=== PATIENT | male | born 1960 | race Caucasian/White ===

== ENCOUNTER → 2022-10-28 16:36 | Outpatient (BNVA) | payer MEDICARE, MEDICAID, SELFPAY | PROVIDERS: PCP Family Medicine; Visit Provider Thoracic Surgery (Cardiothoracic Vascular Surgery) | DX: I96 Gangrene, not elsewhere classified (principal); E11.621 Type 2 diabetes mellitus with foot ulcer; L97.522 Non-pressure chronic ulcer of other part of left foot with fat layer exposed | CPT/HCPCS: 11042; 97597 ==

== ENCOUNTER 2022-11-23 14:50 | Emergency (ER) | payer MEDICARE, MEDICAID, SELFPAY ==
[2022-11-23 14:57] VITALS: BP 134/68; PULSE 108; RESP 16; TEMP 37.3; O2SAT 92
--- NOTE | 2022-11-23 15:21 | ED_ITS ---
HPI - Extremity Problem General: Chief complaint: Extremity Injury, Lower Stated complaint: blisters on both feet. Time Seen by Provider: 11/23/22 15:01 History of Present Illness: Patient comes in with blisters on both feet. States that he is diabetic and does not have feeling in his feet. States that the last couple of days he noticed blisters on his feet bilaterally. States he had a blister on his left big toe which he took the skin off of. States he is concerned that that 1 might be infected. Associated symptoms: Deny chest pain, fever(s) or rash Review of Systems Const: Denies: fever(s) or body aches Eyes: Denies: change in vision or blurry vision ENMT: Denies: throat pain or odynophagia Card: Denies: chest pain or palpitations Resp: Denies: dyspnea or productive cough GI: Denies: abdominal pain, nausea or vomiting : Denies: flank pain or dysuria Musc: Denies: neck pain or back pain Skin/Breast: Reports: erythema and sores; Denies: rash or pruritus Neuro: Denies: headache(s) or numbness in extremities Psych: Denies: anxiety or change in appetite Endo: Denies: polyuria or excessive sweating PFSH ED PFSH: Medical History (Updated 11/23/22 @ 15:21 by Gaudencio Khan MD) Diabetes Postoperative complication of skin involving drainage from surgical wound Pressure ulcer acquired in [facility] PVD (peripheral vascular disease) Social History Smoking and tobacco status: former smoker Physical Exam Const: COMMON NORMALS: no acute distress, patient oriented x3, healthy appearing and alert HENMT: COMMON NORMALS: normocephalic and atraumatic HEAD & SCALP: normocephalic and atraumatic Eye: COMMON NORMALS: Equal, round and reactive pupils present and EOMs intact bilaterally PUPIL: Yes Equal, round and reactive pupils present Neck/C-Spine: COMMON NORMALS: full ROM and supple Resp: COMMON NORMALS: normal respiratory effort, No retractions and No use of accessory muscles Cardio: COMMON NORMALS: regular rate and regular rhythm RATE: regular rate RHYTHM: regular rhythm GI: COMMON NORMALS: Normal to inspection, nondistended, normoactive bowel sounds present, Soft to palpation and non-tender PALPATION: Yes Soft to palpation Back/Pelvis: COMMON NORMALS: thoracic and lumbar spine normal to inspection and no thoracic nor lumbar tenderness Extremity: OTHER: blisters on the medial aspect of bilateral big toes. His left foot is warm to touch with very mild erythema. 2+ pitting edema of his left lower extremity Neuro: COMMON NORMALS: patient oriented x3 SENSORIUM/ORIENTATION: Yes alert Psych: COMMON NORMALS: mental status grossly normal and cooperative Skin: COMMON NORMALS: no rashes or lesions noted and no wounds GENERAL SKIN EXAM: no rashes or lesions noted Course Vital Signs: Vital signs: Vital Signs Temperature 99.2 F 11/23/22 14:57 Pulse Rate 108 H 11/23/22 14:57 Respiratory Rate 16 11/23/22 14:57 Blood Pressure 134/68 11/23/22 14:57 Pulse Oximetry 92 11/23/22 14:57 MDM - Extremity (Nontraumatic) Medical Decision Making Patient comes in with blisters on both feet. States that he is diabetic and does not have feeling in his feet. States that the last couple of days he noticed blisters on his feet bilaterally. States he had a blister on his left big toe which he took the skin off of. States he is concerned that that 1 might be infected. On physical exam he has blisters on the medial aspect of bilateral big toes. His left foot is warm to touch with very mild erythema. I am concerned that it may be infected. Given his history of diabetes will start him on antibiotics and discharge precautions return for worsening or changing symptoms. He states that he has an appointment in the wound care clinic in 2 days. Discharge Plan Discharge Patient Disposition: Home Clinical Impression: Cellulitis of foot, Blister Condition: Stable Prescriptions: New Bactrim DS 800-160 mg tablet 1 tab PO BID 10 Days Qty: 20 0RF cephalexin 500 mg capsule 500 mg PO Q6H 10 Days Qty: 40 0RF No Action aspirin 81 mg tablet,delayed release (DR/EC) 81 mg PO DAILY oxycodone 5 mg capsule 5 mg PO Q4H PRN albuterol sulfate [ProAir HFA] 90 mcg/actuation HFA aerosol inhaler 1 puff inhalation QID Eliquis 5 mg tablet 5 mg PO BID atorvastatin 10 mg tablet 10 mg PO DAILY Farxiga 10 mg tablet 10 mg PO DAILY Bydureon BCise 2 mg/0.85 mL auto-injector 2 mg SUBCUT Q7D insulin aspart U-100 [Novolog U-100 Insulin aspart] 100 unit/mL solution 14 unit SUBCUT TID Lantus Solostar U-100 Insulin 100 unit/mL (3 mL) insulin pen 28 unit SUBCUT .hs ketoconazole 2 % cream 1 applic topical DAILY lisinopril 20 mg tablet 20 mg PO DAILY metformin 500 mg tablet 500 mg PO BID metoprolol succinate 100 mg tablet extended release 24 hr 100 mg PO BID mupirocin 2 % ointment 1 applic topical BID pioglitazone 30 mg tablet 30 mg PO DAILY pregabalin [Lyrica] 100 mg capsule 100 mg PO BID Trintellix 10 mg tablet 10 mg PO DAILY Discharge Orders: Discharge ED (Routine); Ordered 11/23/22 Ordered By: Gaudencio Khan Referrals: Wero Galvez DO [Primary Care Provider] - Patient Instructions: Cellulitis, Blister (ED) Coding Level of Care Code ED [employer] for [employer]
[2022-11-23 15:44] VITALS: PULSE 91; RESP 18; O2SAT 96
== END 2022-11-23 15:46 | disposition home or self-care (01) ==
PROVIDERS: Emergency Provider Emergency Medicine; PCP Family Medicine
DX: L03.116 Cellulitis of left lower limb (principal); R23.8 Other skin changes; Z79.82 Long term (current) use of aspirin; Z79.01 Long term (current) use of anticoagulants; Z79.4 Long term (current) use of insulin; Z79.84 Long term (current) use of oral hypoglycemic drugs; E11.9 Type 2 diabetes mellitus without complications; Z87.891 Personal history of nicotine dependence
CPT/HCPCS: 99283

== ENCOUNTER → 2022-11-25 16:01 | Outpatient (BNVA) | payer MEDICARE, MEDICAID, SELFPAY | PROVIDERS: PCP Family Medicine; Visit Provider Thoracic Surgery (Cardiothoracic Vascular Surgery) | DX: I96 Gangrene, not elsewhere classified (principal); E11.621 Type 2 diabetes mellitus with foot ulcer; L89.892 Pressure ulcer of other site, stage 2; L97.312 Non-pressure chronic ulcer of right ankle with fat layer exposed; Z09 Encounter for follow-up examination after completed treatment for conditions other than malignant neoplasm | CPT/HCPCS: 11042; 11045; 97597 ==

== ENCOUNTER → 2022-12-02 13:56 | Outpatient (BNVA) | payer MEDICARE, MEDICAID, SELFPAY | PROVIDERS: PCP Family Medicine; Visit Provider Thoracic Surgery (Cardiothoracic Vascular Surgery) | DX: T25.222D Burn of second degree of left foot, subsequent encounter (principal); X15.8XXD Contact with other hot household appliances, subsequent encounter; E11.621 Type 2 diabetes mellitus with foot ulcer; L97.522 Non-pressure chronic ulcer of other part of left foot with fat layer exposed | CPT/HCPCS: 11042; 11045; 97597 ==

== ENCOUNTER → 2022-12-14 14:15 | Outpatient (BNVA) | payer MEDICARE, MEDICAID, SELFPAY | PROVIDERS: PCP Family Medicine; Visit Provider Thoracic Surgery (Cardiothoracic Vascular Surgery) | DX: E11.621 Type 2 diabetes mellitus with foot ulcer (principal); L97.522 Non-pressure chronic ulcer of other part of left foot with fat layer exposed; T25.222D Burn of second degree of left foot, subsequent encounter; X15.8XXD Contact with other hot household appliances, subsequent encounter | CPT/HCPCS: 11042; 11045; 11730; 97597; A6222 ==

== ENCOUNTER → 2022-12-21 13:00 | Outpatient (BNVA) | payer MEDICARE, MEDICAID, SELFPAY | PROVIDERS: PCP Family Medicine; Visit Provider Nurse Practitioner Family | DX: I96 Gangrene, not elsewhere classified (principal); E11.621 Type 2 diabetes mellitus with foot ulcer; L97.522 Non-pressure chronic ulcer of other part of left foot with fat layer exposed; L97.512 Non-pressure chronic ulcer of other part of right foot with fat layer exposed | CPT/HCPCS: 97597; 97598 ==

== ENCOUNTER → 2022-12-28 14:19 | Outpatient (BNVA) | payer MEDICARE, MEDICAID, SELFPAY | PROVIDERS: PCP Family Medicine; Visit Provider Nurse Practitioner Family | DX: I96 Gangrene, not elsewhere classified (principal); E11.621 Type 2 diabetes mellitus with foot ulcer; L97.512 Non-pressure chronic ulcer of other part of right foot with fat layer exposed; L97.522 Non-pressure chronic ulcer of other part of left foot with fat layer exposed | CPT/HCPCS: 97597; 97598 ==

== ENCOUNTER → 2023-01-07 09:58 | Outpatient (BNVA) | payer MEDICARE, MEDICAID, SELFPAY | PROVIDERS: PCP Family Medicine; Visit Provider Nurse Practitioner Family | DX: I96 Gangrene, not elsewhere classified (principal); E11.621 Type 2 diabetes mellitus with foot ulcer; L97.522 Non-pressure chronic ulcer of other part of left foot with fat layer exposed; L97.512 Non-pressure chronic ulcer of other part of right foot with fat layer exposed | CPT/HCPCS: 11042 ==

== ENCOUNTER → 2023-01-14 09:40 | Outpatient (BNVA) | payer MEDICARE, MEDICAID, SELFPAY | PROVIDERS: PCP Family Medicine; Visit Provider Nurse Practitioner Family | DX: E11.621 Type 2 diabetes mellitus with foot ulcer (principal); L97.522 Non-pressure chronic ulcer of other part of left foot with fat layer exposed | CPT/HCPCS: 11042 ==

== ENCOUNTER → 2023-01-18 13:35 | Outpatient (BNVA) | payer MEDICARE, MEDICAID, SELFPAY | PROVIDERS: PCP Family Medicine; Visit Provider Thoracic Surgery (Cardiothoracic Vascular Surgery) | DX: E11.621 Type 2 diabetes mellitus with foot ulcer (principal); L97.522 Non-pressure chronic ulcer of other part of left foot with fat layer exposed | CPT/HCPCS: 11042 ==

== ENCOUNTER → 2023-01-25 15:08 | Outpatient (BNVA) | payer MEDICARE, MEDICAID, SELFPAY | PROVIDERS: PCP Family Medicine; Visit Provider Thoracic Surgery (Cardiothoracic Vascular Surgery) | DX: I96 Gangrene, not elsewhere classified (principal); E11.621 Type 2 diabetes mellitus with foot ulcer; L97.522 Non-pressure chronic ulcer of other part of left foot with fat layer exposed | CPT/HCPCS: 11042; 97597; A6212 ==

== ENCOUNTER → 2023-02-01 14:43 | Outpatient (BNVA) | payer MEDICARE, MEDICAID, SELFPAY | PROVIDERS: PCP Family Medicine; Visit Provider Thoracic Surgery (Cardiothoracic Vascular Surgery) | DX: I96 Gangrene, not elsewhere classified (principal); E11.621 Type 2 diabetes mellitus with foot ulcer; L97.522 Non-pressure chronic ulcer of other part of left foot with fat layer exposed; Z09 Encounter for follow-up examination after completed treatment for conditions other than malignant neoplasm | CPT/HCPCS: 11042 ==

== ENCOUNTER → 2023-02-08 08:41 | Outpatient (BNVA) | payer MEDICARE, MEDICAID, SELFPAY | PROVIDERS: PCP Family Medicine; Visit Provider Thoracic Surgery (Cardiothoracic Vascular Surgery) | DX: I96 Gangrene, not elsewhere classified (principal); E11.621 Type 2 diabetes mellitus with foot ulcer; L97.422 Non-pressure chronic ulcer of left heel and midfoot with fat layer exposed | CPT/HCPCS: 11042 ==

== ENCOUNTER → 2023-02-15 08:56 | Outpatient (BNVA) | payer MEDICARE, MEDICAID, SELFPAY | PROVIDERS: PCP Family Medicine; Visit Provider Nurse Practitioner Family | DX: E11.621 Type 2 diabetes mellitus with foot ulcer (principal); L97.422 Non-pressure chronic ulcer of left heel and midfoot with fat layer exposed | CPT/HCPCS: 97597 ==

== ENCOUNTER → 2023-02-22 09:05 | Outpatient (BNVA) | payer MEDICARE, MEDICAID, SELFPAY | PROVIDERS: PCP Family Medicine; Visit Provider Thoracic Surgery (Cardiothoracic Vascular Surgery) | DX: E11.621 Type 2 diabetes mellitus with foot ulcer (principal); I96 Gangrene, not elsewhere classified; L97.422 Non-pressure chronic ulcer of left heel and midfoot with fat layer exposed | CPT/HCPCS: 97597 ==

== ENCOUNTER → 2023-03-15 10:49 | Outpatient (BNVA) | payer MEDICARE, MEDICAID, SELFPAY | PROVIDERS: PCP Family Medicine; Visit Provider Thoracic Surgery (Cardiothoracic Vascular Surgery) | DX: T25.222D Burn of second degree of left foot, subsequent encounter (principal); X16.XXXD Contact with hot heating appliances, radiators and pipes, subsequent encounter; E11.621 Type 2 diabetes mellitus with foot ulcer; L97.522 Non-pressure chronic ulcer of other part of left foot with fat layer exposed | CPT/HCPCS: 97597 ==

== ENCOUNTER → 2023-03-29 13:58 | Outpatient (BNVA) | payer MEDICARE, MEDICAID, SELFPAY | PROVIDERS: PCP Family Medicine; Visit Provider Thoracic Surgery (Cardiothoracic Vascular Surgery) | DX: E11.52 Type 2 diabetes mellitus with diabetic peripheral angiopathy with gangrene (principal); L97.522 Non-pressure chronic ulcer of other part of left foot with fat layer exposed | CPT/HCPCS: 97597; A6021 ==

== ENCOUNTER → 2023-04-05 14:04 | Outpatient (BNVA) | payer MEDICARE, MEDICAID, SELFPAY | PROVIDERS: PCP Family Medicine; Visit Provider Thoracic Surgery (Cardiothoracic Vascular Surgery) | DX: Z09 Encounter for follow-up examination after completed treatment for conditions other than malignant neoplasm (principal) | CPT/HCPCS: 99212; A6212 ==

== ENCOUNTER 2024-10-24 14:33 | Emergency (ER) | payer MEDICARE, MEDICAID, SELFPAY ==
[2024-10-24] VITALS (31 sets, daily range): BP systolic 119–157; BP diastolic 84–134; PULSE 88–109; RESP 11–29; TEMP 36.2; O2SAT 91–100; BMI 21.7
--- NOTE | 2024-10-24 14:38 | XRR_ITS ---
PROCEDURE INFORMATION: Exam: XR Chest Exam date and time: 10/24/2024 2:47 PM Age: 64 years old Clinical indication: Cough and dyspnea and shortness of breath; Additional info: Dyspnea/cough TECHNIQUE: Imaging protocol: Radiologic exam of the chest. Views: 1 view. COMPARISON: No relevant prior studies available. FINDINGS: Lungs: Left lower lobe atelectasis. The lungs are expanded and clear. No consolidation. Pleural spaces: Elevated left hemidiaphragm. No pleural effusion. No pneumothorax. Heart/Mediastinum: Unremarkable. No cardiomegaly. Bones/joints: Unremarkable. XR/XR chest 1V portable [id number] IMPRESSION: 1. No acute findings. 2. Elevated left hemidiaphragm
--- NOTE | 2024-10-24 14:48 | W.ED.GENADLT ---
Documented by User: Thuan Davis, 10/25/24 05:40 HPI - General Adult General: Chief complaint: General Medical Stated complaint: SOB Time Seen by Provider: 10/24/24 14:38 History of Present Illness: 64-year-old male presents emergency room from home. He evidently left the retirement AMA 13 days ago has been without his medications. He is diabetic he has an open wound on the dorsum of his left foot. Blood sugar at the scene was 384. Reportedly patient is normally on 2 L/min by nasal cannula but he is satting consistently around 91 to 92% at room air. He denies any chest or abdominal pain. History reviewed. Associated symptoms: Reports dyspnea; Deny chest pain or rash Related Data Home Medications Medication Instructions Recorded Confirmed atorvastatin 10 mg tablet 10 mg PO QPM 03/09/22 10/24/24 exenatide microspheres 2 mg/0.85 2 mg SUBCUT Q7D 03/09/22 10/24/24 mL subcutaneous auto-injector ([employer]) lisinopril 20 mg tablet 20 mg PO DAILY 03/09/22 10/24/24 vortioxetine 10 mg tablet 10 mg PO DAILY 03/09/22 10/24/24 (Trintellix) acetaminophen 500 mg capsule 500 mg PO Q6H PRN Pain 10/24/24 10/24/24 albuterol sulfate 90 mcg/actuation 1 inh inhalation Q4H PRN Shortness 10/24/24 10/24/24 aerosol inhaler Of Breath Or Wheezing budesonide-formoterol HFA 160 2 puff inhalation BID 10/24/24 10/24/24 mcg-4.5 mcg/actuation aerosol inhaler (Symbicort) insulin aspart U-100 100 unit/mL See Rx Instructions .Route .COMPLEX 10/24/24 10/24/24 (3 mL) subcutaneous pen (Novolog FlexPen U-100 Insulin aspart) insulin degludec 200 unit/mL (3 38 unit SUBCUT DAILY 10/24/24 10/24/24 mL) subcutaneous pen (Tresiba FlexTouch U-200 insulin) ipratropium 0.5 mg-albuterol 3 mg 3 ml inhalation Q6H PRN Shortness 10/24/24 10/24/24 (2.5 mg base)/3 mL nebulization Of Breath Or Wheezing soln magnesium hydroxide 400 mg/5 mL 30 ml PO BID PRN Constipation 10/24/24 10/24/24 oral suspension (Milk of Magnesia) melatonin 3 mg tablet 3 mg PO QPM 10/24/24 10/24/24 metformin 1,000 mg tablet 1,000 mg PO BID 10/24/24 10/24/24 metoprolol succinate 25 mg 25 mg PO DAILY 10/24/24 10/24/24 tablet,extended release 24 hr nystatin 100,000 unit/gram topical 1 applic topical DAILY PRN rash 10/24/24 10/24/24 cream ondansetron 4 mg disintegrating 4 mg PO Q6H 10/24/24 10/24/24 tablet polyethylene glycol 3350 17 gram 17 g PO DAILY 10/24/24 10/24/24 oral powder packet (Miralax) tamsulosin 0.4 mg capsule 0.4 mg PO QPM 10/24/24 10/24/24 Previous Rx's Medication Instructions Recorded furosemide 40 mg tablet (Lasix) 40 mg PO DAILY #5 tabs 10/24/24 Allergies Allergy/AdvReac Type Severity Reaction Status Date / Time No Known Allergies Allergy Unverified 03/09/22 10:38 Review of Systems Const: Denies: fever(s) or chills Card: Denies: chest pain Resp: Reports: dyspnea; Denies: productive cough, wheezing or chest congestion GI: Denies: abdominal pain : Denies: dysuria, urinary frequency or urinary urgency Musc: Denies: neck pain or back pain Skin/Breast: Denies: rash PFSH ED PFSH: Medical History Pressure ulcer acquired in [facility] [place] Diabetes PVD (peripheral vascular disease) Postoperative complication of skin involving drainage from surgical wound Social History Smoking and tobacco/nicotine status: former use of tobacco/nicotine Physical Exam Const: COMMON NORMALS: no acute distress GENERAL APPEARANCE: cooperative and comfortable ORIENTATION/CONSCIOUSNESS: Yes awake and Yes oriented to person HENMT: COMMON NORMALS: normocephalic, atraumatic and hearing grossly normal bilaterally HEAD & SCALP: normocephalic and atraumatic Resp: COMMON NORMALS: normal respiratory effort, No retractions, No use of accessory muscles and clear to auscultation bilaterally AUSCULTATION: clear to auscultation bilaterally Cardio: COMMON NORMALS: regular rate, regular rhythm and No murmurs present (Cardio) RATE: regular rate RHYTHM: regular rhythm GI: COMMON NORMALS: Soft to palpation and No hepatosplenomegaly present AUSCULTATION: Yes normoactive bowel sounds PALPATION: Yes Soft to palpation, No Tenderness to palpation present (GI), No Guarding due to palpation present (GI) and Yes No hepatosplenomegaly present Extremity: COMMON NORMALS: normal to inspection, capillary refill normal, no clubbing, cyanosis or edema, no calf tenderness and no pedal edema Neuro: SENSORIUM/ORIENTATION: Yes oriented to person Skin: COMMON NORMALS: no rashes or lesions noted GENERAL SKIN EXAM: no rashes or lesions noted Course Vital Signs: Vital signs: Vital Signs Temperature 97.2 F L 10/24/24 14:35 Pulse Rate 102 H 10/24/24 18:30 Respiratory Rate 29 H 10/24/24 18:30 Blood Pressure 157/134 10/24/24 18:30 Pulse Oximetry 91 10/24/24 18:30 Oxygen Delivery Me thod Nasal Cannula 10/24/24 18:07 Oxygen Flow Rate 2 10/24/24 18:07 [facility] - General Adult Medical Decision Making Care signed out to Dr. Maurer at change of shift. See final notes for diagnosis and disposition. Care transferred over to myself at shift change, lab work was reviewed, no pulmonary edema chest bilateral lower extremity edema and chronic left foot ache wound, patient will be referred to wound care. We dressed it in a Betadine gauze type dressing, patient will be placed on Lasix 40 mg a day for the next 5 days and instructed to follow-up with his PCP. Lab Data 10/24/24 15:20 10/24/24 15:20 Radiology Impressions Chest X-Ray 10/24/24 14:38 IMPRESSION: 1. No acute findings. 2. Elevated left hemidiaphragm Laboratory Results WBC 6.96 10^3/uL (3.29-11.43) 10/24/24 15:20 RBC 4.84 10^6/uL (3.85-5.65) 10/24/24 15:20 Hgb 13.00 g/dL (11.27-16.99) 10/24/24 15:20 Hct 44.7 % (37-53) 10/24/24 15:20 MCV 92.4 fl (82-101) 10/24/24 15:20 MCH 26.9 pg (27-33) L 10/24/24 15:20 MCHC 29.1 g/dL (30-55) L 10/24/24 15:20 RDW 14.6 % (12.1-15.1) 10/24/24 15:20 Plt Count 131 10^3/cmm (157-399) L 10/24/24 15:20 MPV 11.4 fL (7.4-10.4) H 10/24/24 15:20 Neut % (Auto) 73.9 % 10/24/24 15:20 Lymph % (Auto) 14.4 % 10/24/24 15:20 [place] % (Auto) 8.8 % 10/24/24 15:20 Eos % (Auto) 2.2 % 10/24/24 15:20 Baso % (Auto) 0.6 % 10/24/24 15:20 Neut # (Auto) 5.15 10^3/uL (1.8-7.7) 10/24/24 15:20 Lymph # (Auto) 1.0 10^3/uL (0.8-4.8) 10/24/24 15:20 [place] # (Auto) 0.6 10^3/uL (0.2-0.9) 10/24/24 15:20 Eos # (Auto) 0.2 10^3/uL (0.0-0.8) 10/24/24 15:20 Baso # (Auto) 0.0 10^3/uL (0.0-0.1) 10/24/24 15:20 Nucleated RBC % (auto) 0 % 10/24/24 15:20 Nucleated RBCs # 0.0 /100WBC 10/24/24 15:20 Sodium 135 mmol/L (136-145) L 10/24/24 15:20 Potassium 4.5 mmol/L (3.5-5.1) 10/24/24 15:20 Chloride 97 mmol/L (98-107) L 10/24/24 15:20 Carbon Dioxide 30 mmol/L (22-29) H 10/24/24 15:20 Anion Gap 12.5 (5-19) 10/24/24 15:20 BUN 16 mg/dL (8-23) 10/24/24 15:20 Creatinine 0.8 mg/dL (0.7-1.2) 10/24/24 15:20 GFR Calculation 96.7 mL/min (90-130) 10/24/24 15:20 Glucose 348 mg/dL (65-115) H 10/24/24 15:20 Calculated Osmolality 295 mOsm/kg (285-295) 10/24/24 15:20 Calcium 8.8 mg/dL (8.5-10.5) 10/24/24 15:20 Total Bilirubin 0.4 mg/dL (0.15-1.2) 10/24/24 15:20 AST 15 U/L (0-40) 10/24/24 15:20 ALT 11 U/L (0-41) 10/24/24 15:20 Alkaline Phosphatase 120 U/L (40-130) 10/24/24 15:20 Troponin T Baseline 33 ng/L (0-15) H 10/24/24 15:20 Troponin T 120 Minute 33.18 ng/L (0-15) H 10/24/24 17:33 Delta Troponin T 0.18 ABS# (0-10) 10/24/24 17:33 C-Reactive Protein 9.7 mg/L (0.0-4.9) H 10/24/24 15:20 NT-Pro-B Natriuret Pep 6071 pg/mL (0-125) H 10/24/24 15:20 Total Protein 6.5 g/dL (6.6-8.7) L 10/24/24 15:20 Albumin 3.2 g/dL (3.5-5.2) L 10/24/24 15:20 Globulin 3.3 g/dL (1.3-4.6) 10/24/24 15:20 Urine Color Dark yellow (Yellow) A 10/24/24 18:37 Urine Appearance Clear (CLEAR) 10/24/24 18:37 Urine pH 5.0 (5-7) 10/24/24 18:37 Ur Specific [place] 1.026 (1.005-1.030) 10/24/24 18:37 Urine Protein 3+ (Negative) A 10/24/24 18:37 Urine Glucose (UA) 3+ (Normal) H 10/24/24 18:37 Urine Ketones Negative (Negative) 10/24/24 18:37 Urine Blood Negative (Negative) 10/24/24 18:37 Urine Nitrate Negative (Negative) 10/24/24 18:37 Urine Bilirubin Negative (Negative) 10/24/24 18:37 Urine Urobilinogen 1.0 mg/dL (Negative) 10/24/24 18:37 Ur Leukocyte Esterase Negative (Negative) 10/24/24 18:37 Urine RBC 0-2 /hpf (0-2) 10/24/24 18:37 Urine WBC 0-5 /hpf (0-5) 10/24/24 18:37 Ur Squamous Epith Cells 0-5 /hpf (0-5) 10/24/24 18:37 Amorphous Sediment Not Reportable 10/24/24 18:37 Urine Bacteria None seen /hpf (NONE) 10/24/24 18:37 Hyaline Casts 21.48 /lpf 10/24/24 18:37 Discharge Plan Discharge Patient Disposition: Home Clinical Impression: Wound of foot Edema Qualifiers: Edema type: unspecified Qualified Code(s): R60.9 - Edema, unspecified Condition: Stable Prescriptions: New furosemide [Lasix] 40 mg tablet 40 mg PO DAILY Qty: 5 0RF No Action atorvastatin 10 mg tablet 10 mg PO QPM Bydureon BCise 2 mg/0.85 mL auto-injector 2 mg SUBCUT Q7D lisinopril 20 mg tablet 20 mg PO DAILY Trintellix 10 mg tablet 10 mg PO DAILY ipratropium-albuterol 0.5 mg-3 mg(2.5 mg base)/3 mL Solution For Nebulization 3 ml INHALATION Q6H PRN (Reason: Shortness Of Breath Or Wheezing) melatonin 3 mg Tablet 3 mg PO QPM magnesium hydroxide [Milk of Magnesia] 400 mg/5 mL Suspension 30 ml PO BID PRN (Reason: Constipation) tamsulosin 0.4 mg Capsule 0.4 mg PO QPM metformin 1,000 mg Tablet 1,000 mg PO BID nystatin 100,000 unit/gram Cream 1 applic TOPICAL DAILY PRN (Reason: rash) metoprolol succinate 25 mg Tablet Extended Release 24 Hr 25 mg PO DAILY albuterol sulfate 90 mcg/actuation Hfa Aerosol Inhaler 1 inh INHALATION Q4H PRN (Reason: Shortness Of Breath Or Wheezing) ondansetron 4 mg Tablet,Disintegrating 4 mg PO Q6H acetaminophen 500 mg Capsule 500 mg PO Q6H PRN (Reason: Pain) insulin aspart U-100 [Novolog FlexPen U-100 Insulin] 100 unit/mL (3 mL) Insulin Pen See Rx Instructions .ROUTE .COMPLEX Rx Instructions: inject as per sliding scale 70-149=0 150-199=2 200-249=4 250-299=6 300-349=8 350+ =10 before meals and at bedtime budesonide-formoterol [Symbicort] 160-4.5 mcg/actuation Hfa Aerosol Inhaler 2 puff INHALATION BID insulin degludec [Tresiba FlexTouch U-200] 200 unit/mL (3 mL) Insulin Pen 38 unit SUBCUT DAILY polyethylene glycol 3350 [Miralax] 17 gram Powder In Packet 17 g PO DAILY Discharge Orders: Discharge ED (Routine); Ordered 10/24/24 Ordered By: Ezequiel Maurer Referrals: Wero Galvez DO [Primary Care Provider] - 1 week Patient Instructions: Chronic Wound Care (ED), Edema (ED) Activity Restrictions/Additional Instructions: You have been referred to case management for referral to wound care. They usually will call you back first thing in the morning to arrange a follow-up appointment. A prescription for Lasix has also been called into [facility]. Please pick it up and take as directed. Please follow up with your family practice physician within the next 7 to 10 days. Coding Level of Care Code ED Hand Alterations Tailor for Chg Fwd Documented by User: Ezequiel Maurer DO 10/24/24 19:35 HPI - General Adult General: Chief complaint: General Medical Stated complaint: SOB Time Seen by Provider: 10/24/24 14:38 Related Data Home Medications Medication Instructions Recorded Confirmed atorvastatin 10 mg tablet 10 mg PO QPM 03/09/22 10/24/24 exenatide microspheres 2 mg/0.85 2 mg SUBCUT Q7D 03/09/22 10/24/24 mL subcutaneous auto-injector (By[employer]well [employer]) lisinopril 20 mg tablet 20 mg PO DAILY 03/09/22 10/24/24 vortioxetine 10 mg tablet 10 mg PO DAILY 03/09/22 10/24/24 (Trintellix) acetaminophen 500 mg capsule 500 mg PO Q6H PRN Pain 10/24/24 10/24/24 albuterol sulfate 90 mcg/actuation 1 inh inhalation Q4H PRN Shortness 10/24/24 10/24/24 aerosol inhaler Of Breath Or Wheezing budesonide-formoterol HFA 160 2 puff inhalation BID 10/24/24 10/24/24 mcg-4.5 mcg/actuation aerosol inhaler (Symbicort) insulin aspart U-100 100 unit/mL See Rx Instructions .Route .COMPLEX 10/24/24 10/24/24 (3 mL) subcutaneous pen (Novolog FlexPen U-100 Insulin aspart) insulin degludec 200 unit/mL (3 38 unit SUBCUT DAILY 10/24/24 10/24/24 mL) subcutaneous pen (Tresiba FlexTouch U-200 insulin) ipratropium 0.5 mg-albuterol 3 mg 3 ml inhalation Q6H PRN Shortness 10/24/24 10/24/24 (2.5 mg base)/3 mL nebulization Of Breath Or Wheezing soln magnesium hydroxide 400 mg/5 mL 30 ml PO BID PRN Constipation 10/24/24 10/24/24 oral suspension (Milk of Magnesia) melatonin 3 mg tablet 3 mg PO QPM 10/24/24 10/24/24 metformin 1,000 mg tablet 1,000 mg PO BID 10/24/24 10/24/24 metoprolol succinate 25 mg 25 mg PO DAILY 10/24/24 10/24/24 tablet,extended release 24 hr nystatin 100,000 unit/gram topical 1 applic topical DAILY PRN rash 10/24/24 10/24/24 cream ondansetron 4 mg disintegrating 4 mg PO Q6H 10/24/24 10/24/24 tablet polyethylene glycol 3350 17 gram 17 g PO DAILY 10/24/24 10/24/24 oral powder packet (Miralax) tamsulosin 0.4 mg capsule 0.4 mg PO QPM 10/24/24 10/24/24 Previous Rx's Medication Instructions Recorded furosemide 40 mg tablet (Lasix) 40 mg PO DAILY #5 tabs 10/24/24 Allergies Allergy/AdvReac Type Severity Reaction Status Date / Time No Known Allergies Allergy Unverified 03/09/22 10:38 PFS ED PFSH: Medical History Pressure ulcer acquired in [facility] [place] Diabetes PVD (peripheral vascular disease) Postoperative complication of skin involving drainage from surgical wound Social History Smoking and tobacco/nicotine status: former use of tobacco/nicotine Course Vital Signs: Vital signs: Vital Signs Temperature 97.2 F L 10/24/24 14:35 Pulse Rate 102 H 10/24/24 18:30 Respiratory Rate 29 H 10/24/24 18:30 Blood Pressure 157/134 10/24/24 18:30 Pulse Oximetry 91 10/24/24 18:30 Oxygen Delivery Me thod Nasal Cannula 10/24/24 18:07 Oxygen Flow Rate 2 10/24/24 18:07 MDM - General Adult Medical Decision Making Care transferred over to myself at shift change, lab work was reviewed, no pulmonary edema chest bilateral lower extremity edema and chronic left foot ache wound, patient will be referred to wound care. We dressed it in a Betadine gauze type dressing, patient will be placed on Lasix 40 mg a day for the next 5 days and instructed to follow-up with his PCP. Medical Records I reviewed the patient's medical records. Lab Data I reviewed the patient's lab results. 10/24/24 15:20 10/24/24 15:20 Radiology Impressions Chest X-Ray 10/24/24 14:38 IMPRESSION: 1. No acute findings. 2. Elevated left hemidiaphragm Laboratory Results WBC 6.96 10^3/uL (3.29-11.43) 10/24/24 15:20 RBC 4.84 10^6/uL (3.85-5.65) 10/24/24 15:20 Hgb 13.00 g/dL (11.27-16.99) 10/24/24 15:20 Hct 44.7 % (37-53) 10/24/24 15:20 MCV 92.4 fl (82-101) 10/24/24 15:20 MCH 26.9 pg (27-33) L 10/24/24 15:20 MCHC 29.1 g/dL (30-55) L 10/24/24 15:20 RDW 14.6 % (12.1-15.1) 10/24/24 15:20 Plt Count 131 10^3/cmm (157-399) L 10/24/24 15:20 MPV 11.4 fL (7.4-10.4) H 10/24/24 15:20 Neut % (Auto) 73.9 % 10/24/24 15:20 Lymph % (Auto) 14.4 % 10/24/24 15:20 [place] % (Auto) 8.8 % 10/24/24 15:20 Eos % (Auto) 2.2 % 10/24/24 15:20 Baso % (Auto) 0.6 % 10/24/24 15:20 Neut # (Auto) 5.15 10^3/uL (1.8-7.7) 10/24/24 15:20 Lymph # (Auto) 1.0 10^3/uL (0.8-4.8) 10/24/24 15:20 [place] # (Auto) 0.6 10^3/uL (0.2-0.9) 10/24/24 15:20 Eos # (Auto) 0.2 10^3/uL (0.0-0.8) 10/24/24 15:20 Baso # (Auto) 0.0 10^3/uL (0.0-0.1) 10/24/24 15:20 Nucleated RBC % (auto) 0 % 10/24/24 15:20 Nucleated RBCs # 0.0 /100WBC 10/24/24 15:20 Sodium 135 mmol/L (136-145) L 10/24/24 15:20 Potassium 4.5 mmol/L (3.5-5.1) 10/24/24 15:20 Chloride 97 mmol/L (98-107) L 10/24/24 15:20 Carbon Dioxide 30 mmol/L (22-29) H 10/24/24 15:20 Anion Gap 12.5 (5-19) 10/24/24 15:20 BUN 16 mg/dL (8-23) 10/24/24 15:20 Creatinine 0.8 mg/dL (0.7-1.2) 10/24/24 15:20 GFR Calculation 96.7 mL/min (90-130) 10/24/24 15:20 Glucose 348 mg/dL (65-115) H 10/24/24 15:20 Calculated Osmolality 295 mOsm/kg (285-295) 10/24/24 15:20 Calcium 8.8 mg/dL (8.5-10.5) 10/24/24 15:20 Total Bilirubin 0.4 mg/dL (0.15-1.2) 10/24/24 15:20 AST 15 U/L (0-40) 10/24/24 15:20 ALT 11 U/L (0-41) 10/24/24 15:20 Alkaline Phosphatase 120 U/L (40-130) 10/24/24 15:20 Troponin T Baseline 33 ng/L (0-15) H 10/24/24 15:20 Troponin T 120 Minute 33.18 ng/L (0-15) H 10/24/24 17:33 Delta Troponin T 0.18 ABS# (0-10) 10/24/24 17:33 C-Reactive Protein 9.7 mg/L (0.0-4.9) H 10/24/24 15:20 NT-Pro-B Natriuret Pep 6071 pg/mL (0-125) H 10/24/24 15:20 Total Protein 6.5 g/dL (6.6-8.7) L 10/24/24 15:20 Albumin 3.2 g/dL (3.5-5.2) L 10/24/24 15:20 Globulin 3.3 g/dL (1.3-4.6) 10/24/24 15:20 Urine Color Dark yellow (Yellow) A 10/24/24 18:37 Urine Appearance Clear (CLEAR) 10/24/24 18:37 Urine pH 5.0 (5-7) 10/24/24 18:37 Ur Specific [place] 1.026 (1.005-1.030) 10/24/24 18:37 Urine Protein 3+ (Negative) A 10/24/24 18:37 Urine Glucose (UA) 3+ (Normal) H 10/24/24 18:37 Urine Ketones Negative (Negative) 10/24/24 18:37 Urine Blood Negative (Negative) 10/24/24 18:37 Urine Nitrate Negative (Negative) 10/24/24 18:37 Urine Bilirubin Negative (Negative) 10/24/24 18:37 Urine Urobilinogen 1.0 mg/dL (Negative) 10/24/24 18:37 Ur Leukocyte Esterase Negative (Negative) 10/24/24 18:37 Urine RBC 0-2 /hpf (0-2) 10/24/24 18:37 Urine WBC 0-5 /hpf (0-5) 10/24/24 18:37 Ur Squamous Epith Cells 0-5 /hpf (0-5) 10/24/24 18:37 Amorphous Sediment Not Reportable 10/24/24 18:37 Urine Bacteria None seen /hpf (NONE) 10/24/24 18:37 Hyaline Casts 21.48 /lpf 10/24/24 18:37 All radiology interpretation(s) finalized by discharge Discharge Plan Discharge Patient Disposition: Home Clinical Impression: Wound of foot Edema Qualifiers: Edema type: unspecified Qualified Code(s): R60.9 - Edema, unspecified Condition: Stable Prescriptions: New furosemide [Lasix] 40 mg tablet 40 mg PO DAILY Qty: 5 0RF No Action atorvastatin 10 mg tablet 10 mg PO QPM Bydureon BCise 2 mg/0.85 mL auto-injector 2 mg SUBCUT Q7D lisinopril 20 mg tablet 20 mg PO DAILY Trintellix 10 mg tablet 10 mg PO DAILY ipratropium-albuterol 0.5 mg-3 mg(2.5 mg base)/3 mL Solution For Nebulization 3 ml INHALATION Q6H PRN (Reason: Shortness Of Breath Or Wheezing) melatonin 3 mg Tablet 3 mg PO QPM magnesium hydroxide [Milk of Magnesia] 400 mg/5 mL Suspension 30 ml PO BID PRN (Reason: Constipation) tamsulosin 0.4 mg Capsule 0.4 mg PO QPM metformin 1,000 mg Tablet 1,000 mg PO BID nystatin 100,000 unit/gram Cream 1 applic TOPICAL DAILY PRN (Reason: rash) metoprolol succinate 25 mg Tablet Extended Release 24 Hr 25 mg PO DAILY albuterol sulfate 90 mcg/actuation Hfa Aerosol Inhaler 1 inh INHALATION Q4H PRN (Reason: Shortness Of Breath Or Wheezing) ondansetron 4 mg Tablet,Disintegrating 4 mg PO Q6H acetaminophen 500 mg Capsule 500 mg PO Q6H PRN (Reason: Pain) insulin aspart U-100 [Novolog FlexPen U-100 Insulin] 100 unit/mL (3 mL) Insulin Pen See Rx Instructions .ROUTE .COMPLEX Rx Instructions: inject as per sliding scale 70-149=0 150-199=2 200-249=4 250-299=6 300-349=8 350+ =10 before meals and at bedtime budesonide-formoterol [Symbicort] 160-4.5 mcg/actuation Hfa Aerosol Inhaler 2 puff INHALATION BID insulin degludec [Tresiba FlexTouch U-200] 200 unit/mL (3 mL) Insulin Pen 38 unit SUBCUT DAILY polyethylene glycol 3350 [Miralax] 17 gram Powder In Packet 17 g PO DAILY Discharge Orders: Discharge ED (Routine); Ordered 10/24/24 Ordered By: Ezequiel Maurer Referrals: Wero Galvez DO [Primary Care Provider] - 1 week Patient Instructions: Chronic Wound Care (ED), Edema (ED) Activity Restrictions/Additional Instructions: You have been referred to case management for referral to wound care. They usually will call you back first thing in the morning to arrange a follow-up appointment. A prescription for Lasix has also been called into [facility]. Please pick it up and take as directed. Please follow up with your family practice physician within the next 7 to 10 days. Coding Level of Care Code ED Hand Alterations Tailor for Cm Combs
--- NOTE | 2024-10-24 15:20 | PC.PHAR ---
patient left [facility] in [facility] with no meds or belongings, nurse at facility is faxing his current med list that they were giving him he supposedly left 8 days ago and hasn't had any meds since
--- NOTE | 2024-10-24 15:23 | ECG_ITS ---
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 Measurements Intervals [place] Rate: 99 P: 33 AL: 201 QRS: 18 QRSD: 94 T: 91 QT: 331 QTc: 425 Interpretive Statements Possible SINUS RHYTHM POSSIBLE ANTERIOR MYOCARDIAL INFARCTION , OF INDETERMINATE AGE [30 ms Q WAVE IN V3/V4, OR R < 0.2 mV IN V4] No previous ECG available for comparison Electronically Signed On 10-24-2024 23:55:19 MAMMOGRAPHER by Izabela Lizarraga M.D. [id number]
[2024-10-24 15:34] LABS: Basophils % 0.6 %; Eosinophils # 0.2 10^3/uL (0.0-0.8); Eosinophils % 2.2 %; Hematocrit 44.7 % (37-53); Lymphocytes % 14.4 %; Mean Corpuscular HGB Conc 29.1 g/dL (30-55); Mean Corpuscular Hemoglobin 26.9 pg (27-33); Mean Corpuscular Volume 92.4 fl (82-101); Mean Platelet Volume 11.4 fL (7.4-10.4); Monocytes # 0.6 10^3/uL (0.2-0.9); Monocytes % 8.8 %; Neutrophils # 5.15 10^3/uL (1.8-7.7); Neutrophils % 73.9 %; Nucleated Red Blood Cells % 0 %; Platelet Count 131 10^3/cmm (157-399); Red Blood Count 4.84 10^6/uL (3.85-5.65); Red Cell Distribution Width 14.6 % (12.1-15.1); White Blood Count 6.96 10^3/uL (3.29-11.43)
[2024-10-24 15:48] LABS: Troponin(5th) Baseline 33 ng/L (0-15)
[2024-10-24 16:02] LABS: Alanine Aminotransferase 11 U/L (0-41); Albumin Level 3.2 g/dL (3.5-5.2); Alkaline Phosphatase 120 U/L (40-130); Anion Gap 12.5 (5-19); Aspartate Amino Transferase 15 U/L (0-40); Blood Urea Nitrogen 16 mg/dL (8-23); C Reactive Protein 9.7 mg/L (0.0-4.9); Calcium 8.8 mg/dL (8.5-10.5); Carbon Dioxide 30 mmol/L (22-29); Chloride 97 mmol/L (98-107); Creatinine Clr Calc Pharmacy 97.1122; Globulin 3.3 g/dL (1.3-4.6); Glomerular Filtration Rate 96.7 mL/min (90-130); Glucose 348 mg/dL (65-115); NT Pro B Type Natriuretic Pept 6071 pg/mL (0-125); Osmolality Calculated 295 mOsm/kg (285-295); Potassium 4.5 mmol/L (3.5-5.1); Sodium 135 mmol/L (136-145); Total Bilirubin 0.4 mg/dL (0.15-1.2); Total Protein 6.5 g/dL (6.6-8.7)
--- NOTE | 2024-10-24 17:36 | ECG_ITS ---
[email or web address] Date: 2024-10-24 Pat Name: Ralph Turner Department: Room: Gender: Male Program Manager Environmental Planning: : 1960 Requested By: Thuan Lea Order Number: [id number] Reading MD: MACIEL SIERAR Measurements Intervals [place] Rate: 94 P: 30 TX: 203 QRS: 7 QRSD: 103 T: 95 QT: 354 QTc: 443 Interpretive Statements SINUS RHYTHM NONSPECIFIC T-WAVE ABNORMALITY Compared to ECG 10/24/2024 14:42:28 T-wave abnormality now present Myocardial infarct finding no longer present Electronically Signed On 10-30-2024 23:26:57 CENTRAL STERILE TECHNICIAN by MACIEL SIERRA [email or web address]
[2024-10-24] MEDS: FUROsemide 10 mg/mL SDV 4mL 40 MG IVP (18:06)
[2024-10-24 18:09] LABS: Troponin 5 2HR 33.18 ng/L (0-15); Troponin 5 2HR Delta 0.18 ABS# (0-10)
[2024-10-24 18:49] LABS: Bilirubin Urine Negative (Negative); Blood Urine Negative (Negative); Glucose Urine UA 3+ (Normal); Ketones Urine Negative (Negative); Leukocyte Esterase Urine Negative (Negative); Nitrate Urine Negative (Negative); Protein Urine 3+ (Negative); Specific Gravity, Urine 1.026 (1.005-1.030); Urine Appearance Clear (CLEAR); Urine Color Dark Yellow (Yellow)
[2024-10-24 18:54] LABS: Add Urine Microscopic? YES; Bacteria Urine None Seen /hpf; Hyaline Casts Urine 21.48 /lpf; RBC Urine 0-2 /hpf (0-2); Squamous Epithelial Cell Urine 0-5 /hpf (0-5); WBC Urine 0-5 /hpf (0-5)
[2024-10-24 19:28] LABS: UA Slide Review UA Slide Review Perf
--- NOTE | 2024-10-25 10:03 | DCPLANNER ---
Message sent to Wound care for follow up on chronic lt foot wound
== END 2024-10-24 19:45 | disposition home or self-care (01) ==
PROVIDERS: Emergency Provider Family Medicine; PCP Family Medicine
DX: S91.302A Unspecified open wound, left foot, initial encounter (principal); E11.9 Type 2 diabetes mellitus without complications; R60.9 Edema, unspecified; Z79.84 Long term (current) use of oral hypoglycemic drugs; Z79.4 Long term (current) use of insulin
CPT/HCPCS: 71045; 80053; 81001; 83880; 84484; 85025; 86140; 93005; 96374; 99285; J1940

== ENCOUNTER 2025-02-22 14:42 | Inpatient (IN) | payer OTHER, MEDICAID, SELFPAY ==
[2025-02-22] VITALS (7 sets, daily range): BP systolic 98–119; BP diastolic 63–83; PULSE 79–92; RESP 18; TEMP 36.8; O2SAT 93–97; BMI 22.6
--- NOTE | 2025-02-22 14:45 | XR_ITS ---
WS: [id number] Exam: XR chest 1V portable [id number] Date/Time of Exam: 02/22/2025 2:49 PM Reason For Exam: dyspnea/cough Comparison 10/24/2024. No acute infiltrates. Plaque atelectasis in the left lower lung zone. Mild chronic elevation of the LEFT diaphragm. Cardiac enlargement unchanged. Bony structures are intact. No pleural effusion or pneumothorax. XR/XR chest 1V portable [id number] IMPRESSION: 1. No acute cardiopulmonary finding. 2. Mild cardiac enlargement unchanged. LEFT basal plaque atelectasis.
--- NOTE | 2025-02-22 14:45 | CTR_ITS ---
PROCEDURE INFORMATION: Exam: CT Abdomen And Pelvis With Contrast Exam date and time: 02/22/2025 3:26 PM Age: 64 years old Clinical indication: Abdominal pain; Generalized; Additional info: Abd pain TECHNIQUE: Imaging protocol: Computed tomography of the abdomen and pelvis with contrast. Radiation optimization: All CT scans at this facility use at least one of these dose optimization techniques: automated exposure control; mA and/or kV adjustment per patient size (includes targeted exams where dose is matched to clinical indication); or iterative reconstruction. Contrast material: OMNI 350; Contrast volume: 100 ml; Contrast route: INTRAVENOUS (IV); COMPARISON: CR XR chest 1V portable [id number] 02/22/2025 2:47 PM RADIATION DOSE METRICS: Total DLP (mGy-cm): 774.11 FINDINGS: Lungs: Possible filling defect in the left pulmonary artery branch supplying the left lower lobe. This is not well visualized on this CT scan of the abdomen and pelvis. Recommend further evaluation with a dedicated CT angiogram of the chest. Subsegmental atelectasis versus infiltrate in visualized left lower lobe. Liver: Normal. No mass. Gallbladder and biliary ducts: Normal. No calcified stones. No ductal dilation. Pancreas: Normal. No ductal dilation. Spleen: Normal. No splenomegaly. Adrenal glands: Normal. No mass. Kidneys and ureters: Simple right renal cyst measuring up to 1.5 cm. No follow-up indicated. No hydronephrosis or nephrolithiasis. No ureteral stones. Stomach and bowel: Normal caliber of the bowel without evidence of obstruction. No focal bowel wall thickening or inflammation. Koxh-tt-uikybhag fecal impaction in the rectum. Appendix: No evidence of appendicitis. Intraperitoneal space: No ascites or pneumoperitoneum. No significant mesenteric lymphadenopathy. Vasculature: Extensive atherosclerotic vascular calcifications predominantly involving the abdominal aorta, proximal renal arteries, common iliac arteries, and the splenic artery. No aneurysm. Lymph nodes: Unremarkable. No enlarged lymph nodes. Urinary bladder: Unremarkable as visualized. Reproductive: Mild nonspecific prostatic enlargement. Bones/joints: No significant focal osseous lesions. Soft tissues: Unremarkable. CT/CT abdomen pelvis w con* [id number] IMPRESSION: 1. No acute findings in the abdomen or pelvis. 2. Possible filling defect in the left pulmonary artery branch supplying the left lower lobe. This is not well visualized on this CT scan of the abdomen and pelvis. Recommend further evaluation with a dedicated CT angiogram of the chest. 3. Subsegmental atelectasis versus infiltrate in visualized left lower lobe. Hepatic steatosis. 4. Mild nonspecific prostatic enlargement. COMMENTS: Consistent with the [employer]'s Incidental Findings Committee white paper (J Am Tami Radiol 2018): Any incidental renal lesion less than 1 cm or classified as too small to characterize, or any incidental cystic renal lesion characterized as simple-appearing, is likely benign. No follow-up imaging is recommended for these lesions per consensus recommendations based on imaging criteria.
--- NOTE | 2025-02-22 14:55 | W.ED.GIBLEED ---
HPI - GI Bleed General: Chief complaint: General Medical Stated complaint: Weakness, Gi Bleed Time Seen by Provider: 02/22/25 14:44 History of Present Illness: 64-year-old male presents emergency room with reported increased confusion over the last 5 to 6 months. He is also been having bright red blood per rectum. Oxygen saturation 80% on room air in triage initially. Patient denies chest pain vague abdominal discomfort denies any sharp pain. No hematochezia melena hematemesis coffee-ground emesis. Associated symptoms: Denies abdominal pain, chills, fever(s) or rash Related Data Home Medications ?Medication ?Instructions ?Recorded ?Confirmed atorvastatin 10 mg tablet 10 mg PO QPM 03/09/22 02/22/25 exenatide microspheres 2 mg/0.85 2 mg SUBCUT Q7D 03/09/22 02/22/25 mL subcutaneous auto-injector ([employer]) lisinopril 20 mg tablet 20 mg PO QPM 03/09/22 02/22/25 vortioxetine 10 mg tablet 10 mg PO DAILY 03/09/22 02/22/25 (Trintellix) albuterol sulfate 90 mcg/actuation 1 inh inhalation Q4H PRN Shortness 10/24/24 02/22/25 aerosol inhaler Of Breath Or Wheezing budesonide-formoterol HFA 160 2 puff inhalation BID 10/24/24 02/22/25 mcg-4.5 mcg/actuation aerosol inhaler (Symbicort) insulin aspart U-100 100 unit/mL See Rx Instructions .Route .COMPLEX 10/24/24 02/22/25 (3 mL) subcutaneous pen (Novolog FlexPen U-100 Insulin aspart) insulin degludec 200 unit/mL (3 38 unit SUBCUT DAILY 10/24/24 02/22/25 mL) subcutaneous pen (Tresiba FlexTouch U-200 insulin) metformin 1,000 mg tablet 1,000 mg PO BID 10/24/24 02/22/25 metoprolol succinate 25 mg 25 mg PO QAM 10/24/24 02/22/25 tablet,extended release 24 hr ondansetron 4 mg disintegrating 4 mg PO Q6H PRN Nausea And Vomiting 10/24/24 02/22/25 tablet tamsulosin 0.4 mg capsule 0.4 mg PO QPM 10/24/24 02/22/25 dapagliflozin propanediol 10 mg 10 mg PO QAM 02/22/25 02/22/25 tablet (Farxiga) diphenhydramine 25 1 tab PO QPM PRN Pain 02/22/25 02/22/25 mg-acetaminophen 500 mg tablet (Tylenol PM Extra Strength) furosemide 40 mg tablet (Lasix) 40 mg PO QAM 02/22/25 02/22/25 insulin glargine 100 unit/mL (3 28 unit SUBCUT DAILY 02/22/25 02/22/25 mL) subcutaneous pen (Lantus Solostar U-100 Insulin) sulfamethoxazole 800 1 tab PO Q12H 02/22/25 02/22/25 mg-trimethoprim 160 mg tablet Allergies Allergy/AdvReac Type Severity Reaction Status Date / Time No Known Allergies Allergy Unverified 03/09/22 10:38 Review of Systems Const: Denies: fever(s) or chills Card: Denies: chest pain Resp: Denies: dyspnea GI: Denies: abdominal pain : Denies: dysuria, urinary frequency or urinary urgency Musc: Denies: neck pain or back pain Skin/Breast: Denies: rash PFSH ED PFSH: Medical History [place] [facility] [place] Diabetes PVD (peripheral vascular disease) Postoperative complication of skin involving drainage from surgical wound Social History Smoking and tobacco/nicotine status: former use of tobacco/nicotine Physical Exam Const: GENERAL APPEARANCE: cooperative ORIENTATION/CONSCIOUSNESS: Yes awake, Yes oriented to person, Yes oriented to place and Yes oriented to time HENMT: COMMON NORMALS: normocephalic, atraumatic and hearing grossly normal bilaterally HEAD & SCALP: normocephalic and atraumatic Resp: COMMON NORMALS: normal respiratory effort, No retractions, No use of accessory muscles and clear to auscultation bilaterally AUSCULTATION: clear to auscultation bilaterally Cardio: COMMON NORMALS: regular rate, regular rhythm and No murmurs present (Cardio) RATE: regular rate RHYTHM: regular rhythm GI: COMMON NORMALS: Soft to palpation and No hepatosplenomegaly present AUSCULTATION: Yes normoactive bowel sounds PALPATION: Yes Soft to palpation, No Tenderness to palpation present (GI), No Guarding due to palpation present (GI) and Yes No hepatosplenomegaly present Extremity: COMMON NORMALS: normal to inspection, capillary refill normal, no clubbing, cyanosis or edema, no calf tenderness and no pedal edema Neuro: SENSORIUM/ORIENTATION: Yes oriented to person, Yes oriented to place and Yes oriented to time Skin: COMMON NORMALS: no rashes or lesions noted GENERAL SKIN EXAM: no rashes or lesions noted Course Vital Signs: Vital signs: Vital Signs Temperature 98.2 F 02/22/25 14:44 Pulse Rate 87 02/22/25 17:30 Respiratory Rate 18 02/22/25 14:44 Blood Pressure 103/83 02/22/25 17:30 Pulse Oximetry 93 02/22/25 17:30 Oxygen Delivery Me thod Nasal Cannula 02/22/25 14:44 Oxygen Flow Rate 3 02/22/25 14:44 MDM - GI Bleed Lab Data 02/22/25 14:59 02/22/25 14:59 Radiology Impressions Abdomen/Pelvis CT 02/22/25 14:45 IMPRESSION: 1. No acute findings in the abdomen or pelvis. 2. Possible filling defect in the left pulmonary artery branch supplying the left lower lobe. This is not well visualized on this CT scan of the abdomen and pelvis. Recommend further evaluation with a dedicated CT angiogram of the chest. 3. Subsegmental atelectasis versus infiltrate in visualized left lower lobe. Hepatic steatosis. 4. Mild nonspecific prostatic enlargement. COMMENTS: Consistent with the [employer]'s Incidental Findings Committee white paper (J Am Tami Radiol 2018): Any incidental renal lesion less than 1 cm or classified as too small to characterize, or any incidental cystic renal lesion characterized as simple-appearing, is likely benign. No follow-up imaging is recommended for these lesions per consensus recommendations based on imaging criteria. ADDENDUM: 02/22/25 [id number] THIS REPORT CONTAINS FINDINGS THAT MAY BE CRITICAL TO PATIENT CARE. The findings were verbally communicated via telephone conference with THUAN CASTILLO at 3:48 PM CDT on 02/22/2025. The findings were acknowledged and understood. Chest X-Ray 02/22/25 14:45 IMPRESSION: 1. No acute cardiopulmonary finding. 2. Mild cardiac enlargement unchanged. LEFT basal plaque atelectasis. Head CT 02/22/25 14:56 IMPRESSION: 1. No acute intracranial findings. 2. 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 3. Imtk-[id number]-urcgppzu diffuse parenchymal volume loss. 4. Mild chronic microangiopathic white matter changes. Chest CTA 02/22/25 15:55 IMPRESSION: 1. Moderate burden of pulmonary embolism in the distal left main pulmonary artery extending into the proximal lobar branches supplying the left lower lobe. No other pulmonary emboli. 2. Atherosclerotic plaquing of the thoracic aorta. No aneurysm or signs of dissection. 3. Heart RV/LV ratio within normal limits. 4. Moderate bandlike opacities and dependent consolidation in the left lower lobe. Differential diagnosis includes atelectasis, pneumonia, or pulmonary infarcts. 5. Moderate cardiomegaly. Laboratory Results WBC 8.48 10^3/uL (3.29-11.43) 02/22/25 14:59 RBC 5.00 10^6/uL (3.85-5.65) 02/22/25 14:59 Hgb 12.80 g/dL (11.27-16.99) 02/22/25 14:59 Hct 42.8 % (37-53) 02/22/25 14:59 MCV 85.6 fl (82-101) 02/22/25 14:59 MCH 25.6 pg (27-33) L 02/22/25 14:59 MCHC 29.9 g/dL (30-55) L 02/22/25 14:59 RDW 17.7 % (12.1-15.1) H 02/22/25 14:59 Plt Count 195 10^3/cmm (157-399) 02/22/25 14:59 MPV 10.3 fL (7.4-10.4) 02/22/25 14:59 Neut % (Auto) 76.1 % 02/22/25 14:59 Lymph % (Auto) 12.0 % 02/22/25 14:59 Carson % (Auto) 7.5 % 02/22/25 14:59 Eos % (Auto) 3.5 % 02/22/25 14:59 Baso % (Auto) 0.4 % 02/22/25 14:59 Neut # (Auto) 6.45 10^3/uL (1.8-7.7) 02/22/25 14:59 Lymph # (Auto) 1.0 10^3/uL (0.8-4.8) 02/22/25 14:59 Carson # (Auto) 0.6 10^3/uL (0.2-0.9) 02/22/25 14:59 Eos # (Auto) 0.3 10^3/uL (0.0-0.8) 02/22/25 14:59 Baso # (Auto) 0.0 10^3/uL (0.0-0.1) 02/22/25 14:59 Nucleated RBC % (auto) 0 % 02/22/25 14:59 Nucleated RBCs # 0.0 /100WBC 02/22/25 14:59 PT 13.10 SECONDS (12.1-14.9) 02/22/25 14:59 INR 0.93 (0.8-1.2) 02/22/25 14:59 Specimen Type Arterial 02/22/25 15: Sample Site Radial, right 02/22/25 15:27 ABG pH 7.37 (7.35-7.45) 02/22/25 15: ABG pCO2 55.5 mmHg (35-45) H 02/22/25 15: ABG pO2 65.6 mmHg (80.0-100.0) L 02/22/25 15: ABG HCO3 31.9 mmol/L (22-26) H 02/22/25 15:27 ABG O2 Saturation 92.3 02/22/25 15: ABG Base Excess 5.2 mmol/L (-2.0-2.0) H 02/22/25 15:27 Amanuel Test Pos 02/22/25 15: A-a O2 Gradient 1.9 mmHg (5-10) L 02/22/25 15: Hematocrit 37.2 % (42-52) L 02/22/25 15:27 Hgb O2 Saturation 90.9 % (95-100) L 02/22/25 15:27 Carboxyhemoglobin 1.4 %THgb (0.4-20.1) 02/22/25 15: Methemoglobin 0.1 % (0.4-1.5) L 02/22/25 15:27 Total Hemoglobin 12.1 g/dL (14-18) L 02/22/25 15:27 Sodium 138.0 mmol/L (131-143) 02/22/25 15:27 Potassium 4.8 mmol/L (3.5-5.0) 02/22/25 15:27 Glucose 77.0 mg/dL (70-115) 02/22/25 15:27 Ionized Calcium 1.2 mmol/L (1.1-1.4) 02/22/25 15:27 O2 Delivery Device Nc 02/22/25 15:27 O2 Liters/Min 3.0 % 02/22/25 15:27 Victims Advocate Clerk/Specialist ID [place] 02/22/25 15:27 Sodium 141 mmol/L (136-145) 02/22/25 14:59 Potassium 5.3 mmol/L (3.5-5.1) H 02/22/25 14:59 Chloride 99 mmol/L (98-107) 02/22/25 14:59 Carbon Dioxide 28 mmol/L (22-29) 02/22/25 14:59 Anion Gap 19.3 (5-19) H 02/22/25 14:59 BUN 33 mg/dL (8-23) H 02/22/25 14:59 Creatinine 1.5 mg/dL (0.7-1.2) H 02/22/25 14:59 GFR Calculation 46.8 mL/min (90-130) L 02/22/25 14:59 Glucose 85 mg/dL (65-115) 02/22/25 14:59 Calculated Osmolality 299 mOsm/kg (285-295) H 02/22/25 14:59 Calcium 8.8 mg/dL (8.5-10.5) 02/22/25 14:59 Total Bilirubin 0.2 mg/dL (0.15-1.2) 02/22/25 14:59 AST 20 U/L (0-40) 02/22/25 14:59 ALT 11 U/L (0-41) 02/22/25 14:59 Alkaline Phosphatase 85 U/L (40-130) 02/22/25 14:59 Creatine Kinase 71 U/L (39-308) 02/22/25 14:59 Total Protein 7.3 g/dL (6.6-8.7) 02/22/25 14:59 Albumin 3.2 g/dL (3.5-5.2) L 02/22/25 14:59 Globulin 4.1 g/dL (1.3-4.6) 02/22/25 14:59 Urine Color Yellow (Yellow) 02/22/25 15:22 Urine Appearance Clear (CLEAR) 02/22/25 15: Urine pH 6.5 (5-7) 02/22/25 15: Ur Specific [place] 1.019 (1.005-1.030) 02/22/25 15: Urine Protein Negative (Negative) 02/22/25 15: Urine Glucose (UA) 3+ (Normal) H 02/22/25 15: Urine Ketones Negative (Negative) 02/22/25 15: Urine Blood Negative (Negative) 02/22/25 15: Urine Nitrate Negative (Negative) 02/22/25 15: Urine Bilirubin Negative (Negative) 02/22/25 15: Urine Urobilinogen 1.0 mg/dL (Negative) 02/22/25 15:22 Ur Leukocyte Esterase Negative (Negative) 02/22/25 15:22 Urine RBC 0-2 /hpf (0-2) 02/22/25 15:22 Urine WBC 0-5 /hpf (0-5) 02/22/25 15:22 Ur Squamous Epith Cells 0-5 /hpf (0-5) 02/22/25 15:22 Amorphous Sediment Not Reportable 02/22/25 15: Urine Bacteria None seen /hpf (NONE) 02/22/25 15: Hyaline Casts 8.26 /lpf 02/22/25 15:22 Discharge Plan Discharge Condition: Stable Prescriptions: No Action atorvastatin 10 mg tablet 10 mg PO QPM Bydureon BCise 2 mg/0.85 mL auto-injector 2 mg SUBCUT Q7D Rx Instructions: Sundays lisinopril 20 mg tablet 20 mg PO QPM Trintellix 10 mg tablet 10 mg PO DAILY tamsulosin 0.4 mg Capsule 0.4 mg PO QPM metformin 1,000 mg Tablet 1,000 mg PO BID metoprolol succinate 25 mg Tablet Extended Release 24 Hr 25 mg PO QAM albuterol sulfate 90 mcg/actuation Hfa Aerosol Inhaler 1 inh INHALATION Q4H PRN (Reason: Shortness Of Breath Or Wheezing) ondansetron 4 mg Tablet,Disintegrating 4 mg PO Q6H PRN (Reason: Nausea And Vomiting) insulin aspart U-100 [Novolog FlexPen U-100 Insulin] 100 unit/mL (3 mL) Insulin Pen See Rx Instructions .ROUTE .COMPLEX Rx Instructions: inject as per sliding scale as needed 70-149=0 150-199=2 200-249=4 250-299=6 300-349=8 350+ =10 before meals and at bedtime budesonide-formoterol [Symbicort] 160-4.5 mcg/actuation Hfa Aerosol Inhaler 2 puff INHALATION BID insulin degludec [Tresiba FlexTouch U-200] 200 unit/mL (3 mL) Insulin Pen 38 unit SUBCUT DAILY diphenhydramine-acetaminophen [Tylenol PM Extra Strength] 25-500 mg Tablet 1 tab PO QPM PRN (Reason: Pain) furosemide [Lasix] 40 mg tablet 40 mg PO QAM sulfamethoxazole-trimethoprim 800-160 mg tablet 1 tab PO Q12H insulin glargine [Lantus Solostar U-100 Insulin] 100 unit/mL (3 mL) insulin pen 28 unit SUBCUT DAILY dapagliflozin propanediol [Farxiga] 10 mg tablet 10 mg PO QAM Referrals: Wero Galvez DO [Primary Care Provider, Family Practice] Print Language: Lao Coding Level of Care Code 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
--- NOTE | 2025-02-22 14:56 | CTR_ITS ---
PROCEDURE INFORMATION: Exam: CT Head Without Contrast Exam date and time: 02/22/2025 3:20 PM Age: 64 years old Clinical indication: Altered mental status/memory loss; Additional info: AMS TECHNIQUE: Imaging protocol: Computed tomography of the head without contrast. Radiation optimization: All CT scans at this facility use at least one of these dose optimization techniques: automated exposure control; mA and/or kV adjustment per patient size (includes targeted exams where dose is matched to clinical indication); or iterative reconstruction. COMPARISON: No relevant prior studies available. 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 Jhue-ih-apfwkouj diffuse parenchymal volume loss. Mild chronic microangiopathic white matter changes. Cerebral ventricles: No ventriculomegaly. Paranasal sinuses: Visualized sinuses are unremarkable. No fluid levels. Mastoid air cells: Visualized mastoid air cells are well aerated. Bones: Unremarkable. No acute fracture. Soft tissues: Unremarkable. Vasculature: Atherosclerotic calcifications of the cavernous segments of the internal carotid arteries bilaterally. CT/CT head wo con* [id number] IMPRESSION: 1. No acute intracranial findings. 2. 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 3. Dhgl-rj-[id number] diffuse parenchymal volume loss. 4. Mild chronic microangiopathic white matter changes.
[2025-02-22 15:07] LABS: Basophils % 0.4 %; Eosinophils # 0.3 10^3/uL (0.0-0.8); Eosinophils % 3.5 %; Hematocrit 42.8 % (37-53); Mean Corpuscular HGB Conc 29.9 g/dL (30-55); Mean Corpuscular Hemoglobin 25.6 pg (27-33); Mean Corpuscular Volume 85.6 fl (82-101); Mean Platelet Volume 10.3 fL (7.4-10.4); Monocytes # 0.6 10^3/uL (0.2-0.9); Monocytes % 7.5 %; Neutrophils # 6.45 10^3/uL (1.8-7.7); Neutrophils % 76.1 %; Nucleated Red Blood Cells % 0 %; Platelet Count 195 10^3/cmm (157-399); Red Cell Distribution Width 17.7 % (12.1-15.1); White Blood Count 8.48 10^3/uL (3.29-11.43)
--- NOTE | 2025-02-22 15:23 | PC.PHAR ---
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 Pt has Lantus Rx on hold for future use.
[2025-02-22] MEDS: iohexol 350 mg/mL 500 mL Btl (per mL) IV ×2 (15:27→16:35)
[2025-02-22 15:30] LABS: Alanine Aminotransferase 11 U/L (0-41); Albumin Level 3.2 g/dL (3.5-5.2); Alkaline Phosphatase 85 U/L (40-130); Anion Gap 19.3 (5-19); Aspartate Amino Transferase 20 U/L (0-40); Blood Urea Nitrogen 33 mg/dL (8-23); Calcium 8.8 mg/dL (8.5-10.5); Carbon Dioxide 28 mmol/L (22-29); Chloride 99 mmol/L (98-107); Creatine Phosphokinase 71 U/L (39-308); Creatinine Clr Calc Pharmacy 52.6633; Globulin 4.1 g/dL (1.3-4.6); Glomerular Filtration Rate 46.8 mL/min (90-130); Glucose 85 mg/dL (65-115); Osmolality Calculated 299 mOsm/kg (285-295); Potassium 5.3 mmol/L (3.5-5.1); Sodium 141 mmol/L (136-145); Total Bilirubin 0.2 mg/dL (0.15-1.2); Total Protein 7.3 g/dL (6.6-8.7)
[2025-02-22 15:33] LABS: INR 0.93 (0.8-1.2)
[2025-02-22 15:35] LABS: Bilirubin Urine Negative (Negative); Blood Urine Negative (Negative); Glucose Urine UA 3+ (Normal); Ketones Urine Negative (Negative); Leukocyte Esterase Urine Negative (Negative); Nitrate Urine Negative (Negative); Protein Urine Negative (Negative); Specific Gravity, Urine 1.019 (1.005-1.030); Urine Appearance Clear (CLEAR); Urine Color Yellow (Yellow); pH Urine 6.5 (5-7)
[2025-02-22 15:37] LABS: Add Urine Microscopic? YES; Bacteria Urine None Seen /hpf; Hyaline Casts Urine 8.26 /lpf; RBC Urine 0-2 /hpf (0-2); Squamous Epithelial Cell Urine 0-5 /hpf (0-5); WBC Urine 0-5 /hpf (0-5)
[2025-02-22 15:38] LABS: ABG PCO2 55.5 mmHg (35-45); ABG PH Result 7.37 (7.35-7.45); Alveolar-Arterial Oxygen Gradi 1.9 mmHg (5-10); Arterial Blood Gas Hematocrit 37.2 % (42-52); Base Excess ABG 5.2 mmol/L (-2.0-2.0); Blood Gas Allen Test Pos; Blood Gas Operator Identificat WALCI; Blood Gas Sample Site Radial, right; Blood Gas Sample Type Arterial; Carboxyhemoglobin 1.4 %THgb (0.4-20.1); HCO3 ABG 31.9 mmol/L (22-26); HGB O2 Sat 90.9 % (95-100); Ionized Calcium Level - ABG 1.2 mmol/L (1.1-1.4); Methemoglobin 0.1 % (0.4-1.5); Oxygen Device NC; Oxygen Saturation ABG 92.3; PO2 ABG 65.6 mmHg (80.0-100.0); Potassium Level - ABG 4.8 mmol/L (3.5-5.0); Total Hemoglobin 12.1 g/dL (14-18)
[2025-02-22 15:40] LABS: Add Urine Culture? No; UA Slide Review UA Slide Review Perf
--- NOTE | 2025-02-22 15:55 | CTR_ITS ---
PROCEDURE INFORMATION: Exam: CTA Chest With Contrast Exam date and time: 02/22/2025 4:26 PM Age: 64 years old Clinical indication: Shortness of breath; Additional info: Hypoxia TECHNIQUE: Imaging protocol: Computed tomographic angiography of the chest with contrast. Exam focused on the arteries. 3D rendering (Not supervised by radiologist): MIP and/or 3D reconstructed images were created by the technologist. Radiation optimization: All CT scans at this facility use at least one of these dose optimization techniques: automated exposure control; mA and/or kV adjustment per patient size (includes targeted exams where dose is matched to clinical indication); or iterative reconstruction. Contrast material: OMNI 350; Contrast volume: 76 ml; Contrast route: INTRAVENOUS (IV); COMPARISON: CR XR chest 1V portable [id number] 02/22/2025 2:47 PM RADIATION DOSE METRICS: Total DLP (mGy-cm): 399.05 FINDINGS: Pulmonary arteries: Moderate burden of pulmonary embolism in the distal left main pulmonary artery extending into the proximal lobar branches supplying the left lower lobe. No other pulmonary emboli. Aorta: Atherosclerotic plaquing of the thoracic aorta. No aneurysm or signs of dissection. Lungs: Moderate bandlike opacities and dependent consolidation in the left lower lobe. Pleural spaces: Unremarkable. No pneumothorax. No pleural effusion. Heart: Mild cardiomegaly. Heart RV/LV ratio within normal limits. Coronary arteries: Atherosclerotic coronary artery calcifications. Lymph nodes: Shotty mediastinal lymph nodes, likely reactive. Bones/joints: Unremarkable. No acute fracture. Soft tissues: Unremarkable. CT/CT angio chest PE protcl [id number] IMPRESSION: 1. Moderate burden of pulmonary embolism in the distal left main pulmonary artery extending into the proximal lobar branches supplying the left lower lobe. No other pulmonary emboli. 2. Atherosclerotic plaquing of the thoracic aorta. No aneurysm or signs of dissection. 3. Heart RV/LV ratio within normal limits. 4. Moderate bandlike opacities and dependent consolidation in the left lower lobe. Differential diagnosis includes atelectasis, pneumonia, or pulmonary infarcts. 5. Moderate cardiomegaly.
[2025-02-22] MEDS: sodium chloride 0.9% 1,000 ML 999 ML IV (17:57)
--- NOTE | 2025-02-22 18:15 | ECG_ITS ---
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1960 Requested By: Thuan Lea Order Number: [id number] Reading MD: MACIEL SIERRA Measurements Intervals Darby Rate: 81 P: 42 WV: 213 QRS: 21 QRSD: 96 T: 112 QT: 380 QTc: 444 Interpretive Statements SINUS RHYTHM WITH FIRST DEGREE AV BLOCK POSSIBLE ANTERIOR MYOCARDIAL INFARCTION , OF INDETERMINATE AGE [30 ms Q WAVE IN V3/V4, OR R < 0.2 mV IN V4] Compared to ECG 10/24/2024 17:36:06 First degree AV block now present Myocardial infarct finding now present T-wave abnormality no longer present Electronically Signed On 02-22-2025 23:26:32 CDT by MACIEL SIERRA [email or web address] [id number]
[2025-02-22] MEDS: heparin drip 25,000 UNIT/500 ML PREMIX 21 UNIT IV (18:17)
[2025-02-22] MEDS: heparin 5,000 unit/mL INJ 1 mL IVP (18:17)
[2025-02-22 18:46] LABS: NT Pro B Type Natriuretic Pept 1871 pg/mL (0-125)
[2025-02-22 19:07] LABS: Troponin(5th) Baseline 237 ng/L (0-15)
--- NOTE | 2025-02-22 19:37 | PM.HP ---
Providers/Chief Complaint Admitting Physician: Lorena Begum MD Primary Care Provider: Wero Galvez DO Chief Complaint: Weakness, Gi Bleed History of Present Illness Ralph Turner is a 64 year old male w/ HTN, HLD, IDDM2 w/ diabetic neuropathy in his feet and partially in his hands, Asthma, BPH, MDD, CHF, CVA, L. LE DVT, Long time methamphetamine addict, stopped smoking 2 yrs ago, who was brought to the ED on 02/22/2025 by his caregiver brought for rectal bleeding, increasing confusion and hypoxemia. In the ED he was hypoxic to the 80s, but the rest of his vital signs are within normal limits. His CT head was negative for any acute intracranial findings, but did show focal areas of encephalomalacia in the R. parietal and posterior L. temporal lobe, from old ischemic infarcts. His CXR showed no acute findings. His CT abdomen pelvis also was negative for any acute findings in the abdomen or pelvis, but did show a possible filling defect in the L. Pulmonary artery branch supplying the left lower lobe. A CTA of chest was done that showed a moderate burden of PE in the distal L. main pulmonary artery that extended into the proximal lobar branches. He was given 1L NS bolus and started on NS at 100cc/hr. He was started on Zosyn When seen, the patient is AO to self and place, but thinks that it is February 2005. He tells me that he was brought to the ED by his vhdpdgqh-ob-jjl, Emily Turner. When asked why he came to the hospital, the patient is unsure, but he states that he believes that his jjkjlodw-pm-ivq started noticing BRBPR a week ago. He endorses dizziness, lightheadedness at times, wheezing. He denies any fever, chills, CP, palpitations, abdominal pain, nausea, vomiting. I called his fnoulyqs-qq-poh and his MPOA, Diane Lawrencedaryl, who mentioned that Emily is his girlfriend of 14yrs who has been for the last 4 yrs. Per Diane, the patient never had a daughter, and only had 3 boys. She says that the patient's mind is not there. He is unable to answer orientation questions since he came to live with them in 09/2024. His memory has been worsening. He does not know any of his grandchildren's names, and is not aware of time. She does his IADL and ADL for him. Increased unsteadiness on his feet over the last week. She noticed that he is more confused about current events this week. The patient states that she has been battling a cyst on his testicles for 3 weeks. She states that the cyst ruptured on it's own and it drained. The cyst healed, but is still there, so the patient contacted the PCP. The PCP did labs and A1c. The labs showed a leukocytosis, so he ordered a CXR further r/o a potential pneumonia. CXR was negative for a pneumonia. She took him to PCP last Wednesday about the cyst behind his testicles and put him on Bactrim for 10days, and his abx are supposed to end on Wednesday/Wednesday. She does not want his abx interrupted. Today, she gave him a shower and when he got up, there was BM and blood on the shower chair. She cleaned him up and took his vitals. He was O2 sat was 76% on RA and pulse of 86. She called his PCP, who recommended that the patient go to the ED immediately. The blood was burgundy in color. Per her, the ED attending feels that the patient has internal hemorrhoids, but needs a colonoscopy to rule it out. The patient's ezttqcvz-jq-ebg states that the patient's bottom is very red and that he needs to be turned often. She also tells me that the patient has had many falls because he is independent but is also unsteady on his feet. He cannot get up from his bedside to the commode without being unsteady on his feet. IF the patient needs to be transferred [facility] is preferred then [facility]. Daughter in lawDiane is [phone] is the better person to reach. Review of Systems Const: Denies: fever(s) or chills Eyes: Denies: change in vision ENMT: Denies: odynophagia, ear or mastoid pain, nasal discharge or nasal congestion Card: Reports: lightheadedness; Denies: chest pain, palpitations or syncope Resp: Reports: dyspnea; Denies: productive cough or wheezing GI: Reports: hematochezia; Denies: abdominal pain, nausea, vomiting or melena : Reports: urinary frequency ( my caregiver has me drinking more water. ) and urinary urgency ( my caregiver has me drinking more water. ); Denies: dysuria or hematuria Musc: Denies: joint pain Skin/Breast: Denies: rash or new lesions Neuro: Reports: dizziness; Denies: headache(s) Psych: Reports: depression; Denies: suicidal ideation or homicidal ideation Endo: Reports: cold intolerance; Denies: heat intolerance Evert/Lymph: Denies: easy bruising or easy bleeding Medications/Allergies Home Medications ?Medication ?Instructions ?Recorded ?Confirmed ?Last Taken ?Type atorvastatin 10 mg tablet 10 mg PO QPM 03/09/22 02/22/25 02/21/25 History exenatide microspheres 2 mg/0.85 2 mg SUBCUT Q7D 03/09/22 02/22/25 02/18/25 History mL subcutaneous auto-injector ([employer]) lisinopril 20 mg tablet 20 mg PO QPM 03/09/22 02/22/25 02/21/25 History vortioxetine 10 mg tablet 10 mg PO DAILY 03/09/22 02/22/25 02/22/25 History (Trintellix) albuterol sulfate 90 mcg/actuation 1 inh inhalation Q4H PRN Shortness 10/24/24 02/22/25 Unknown History aerosol inhaler Of Breath Or Wheezing budesonide-formoterol HFA 160 2 puff inhalation BID 10/24/24 02/22/25 02/22/25 History mcg-4.5 mcg/actuation aerosol inhaler (Symbicort) insulin aspart U-100 100 unit/mL See Rx Instructions .Route .COMPLEX 10/24/24 02/22/25 Unknown History (3 mL) subcutaneous pen (Novolog FlexPen U-100 Insulin aspart) insulin degludec 200 unit/mL (3 38 unit SUBCUT DAILY 10/24/24 02/22/25 02/21/25 History mL) subcutaneous pen (Tresiba FlexTouch U-200 insulin) metformin 1,000 mg tablet 1,000 mg PO BID 10/24/24 02/22/25 02/22/25 History metoprolol succinate 25 mg 25 mg PO QAM 10/24/24 02/22/25 02/22/25 History tablet,extended release 24 hr ondansetron 4 mg disintegrating 4 mg PO Q6H PRN Nausea And Vomiting 10/24/24 02/22/25 02/22/25 History tablet tamsulosin 0.4 mg capsule 0.4 mg PO QPM 10/24/24 02/22/25 02/21/25 History dapagliflozin propanediol 10 mg 10 mg PO QAM 02/22/25 02/22/25 02/22/25 History tablet (Farxiga) diphenhydramine 25 1 tab PO QPM PRN Pain 02/22/25 02/22/25 Unknown History mg-acetaminophen 500 mg tablet (Tylenol PM Extra Strength) furosemide 40 mg tablet (Lasix) 40 mg PO QAM 02/22/25 02/22/25 02/22/25 History insulin glargine 100 unit/mL (3 28 unit SUBCUT DAILY 02/22/25 02/22/25 Unknown History mL) subcutaneous pen (Lantus Solostar U-100 Insulin) sulfamethoxazole 800 1 tab PO Q12H 02/22/25 02/22/25 02/22/25 History mg-trimethoprim 160 mg tablet Allergies Allergy/AdvReac Type Severity Reaction Status Date / Time No Known Allergies Allergy Unverified 03/09/22 10:38 PFSH Acute PFSH: Medical History Pressure ulcer acquired in [facility] Diabetes PVD (peripheral vascular disease) Postoperative complication of skin involving drainage from surgical wound Social History Smoking and tobacco/nicotine status: former use of tobacco/nicotine Vitals/I&O/Wt Last Vital Signs Temp 98.2 F 02/22/25 14:44 Pulse 89 02/22/25 19:10 Resp 18 02/22/25 14:44 BP 119/79 02/22/25 19:10 Pulse Ox 95 02/22/25 19:10 O2 Del Method Nasal Cannula 02/22/25 14:44 O2 Flow Rate 3 02/22/25 14:44 Weight last 48 hrs Weight 84.595 kg Weight 75.75 kg Physical Exam Const: GENERAL APPEARANCE: cooperative, comfortable and disheveled ORIENTATION/CONSCIOUSNESS: Yes awake, Yes oriented to person, Yes oriented to place and Yes confused; not oriented to time HENMT: HEAD & SCALP: normocephalic and atraumatic NOSE: Normal external nose present EXTERNAL EAR: Yes external ears normal Eye: CONJUNCTIVA: Yes conjunctivae normal PUPIL: Yes Equal, round and reactive pupils present EOM: No EOM abnormal Neck/C-Spine: THYROID: Thyroid normal CAROTIDS: No bruit CERVICAL SPINE: Yes cervical ROM normal Lymph: OTHER: No cervical or supraclavicular LAD Resp: OTHER: Crackles in the bilateral lower lung crawford. Cardio: OTHER: RRR, no m/r/g or clicks. 2+ radial pulses b/l. 2+ DP in the R. LE and 2+ PT in the L. LE GI: OTHER: BS+, soft, NT, ND, no guarding, no rigidity, no rebound tenderness, or hepatosplenomegaly. Patient also noted to have brown stool with a red tinge, when he was turned to evaluate the skin overlying his lumbosacral & coccygeal spine. : OTHER: Despite extensive evaluation of his testicles, and perineum, and Bottom, I did not see the perineal cyst to which his tcahxyyd-gu-rak and the ED physician referred. Extremity: GENERAL: No clubbing, No cyanosis and No edema Neuro: CRANIAL NERVES: Yes CN normal except as noted SPEECH: speech normal MOTOR EXAM: Normal motor muscle tone present throughout Psych: APPEARANCE: Yes grossly normal ATTITUDE: Yes calm and Yes engaged ACTIVITY/MOTOR BEHAVIOR: Yes appropriate eye contact SPEECH: Yes normal speech MOOD & AFFECT: Yes euthymic mood THOUGHT PROCESS: Normal thought process present THOUGHT CONTENT: Yes Normal thought content present ATTENTION/CONCENTRATION: Yes attention grossly intact MEMORY/COGNITION: Yes memory grossly impaired and Yes cognition grossly impaired Skin: NARRATIVE SKIN EXAM: Erythematous nonblanching skin in the sacrococcygeal area. Data 02/22/25 14:59 02/22/25 14:59 A&P Assessment and plan (1) Rectal bleeding: (2) TRACI (acute kidney injury): (3) Pulmonary embolism on left: (4) Acute respiratory failure with hypoxia: (5) GI bleed: (6) Stage I decubitus ulcer and pressure area: Plan Ralph Turner is a 64 year old male w/ HTN, HLD, IDDM2 w/ diabetic neuropathy in his feet and partially in his hands, Asthma, BPH, MDD, CHF, CVA, L. LE DVT, Long time methamphetamine addict, stopped smoking 2 yrs ago, who was brought to the ED on 02/22/2025 by his caregiver brought for rectal bleeding, increasing confusion and hypoxemia. #Acute hypoxic respiratory failure: Not on O2 at home. Multifactorial causes including PE, possible pneumonia. - Wean as tolerated #Acute PE #Hx of L. LE DVT s/p intervention, per daughter, via the femoral artery that resulted in his L. LE scar - BNP elevated, Trop T elevated. Lactate wnl. - F/u ECHO and b/l LE venous duplex US - Continue heparin gtt started in the ED, but as I told the eikakkrl-ht-cdb, I will monitor for active GI bleeding. If the patient has an active GI bleed, we will have to reverse the heparin with protamine sulfate, and transfer the patient for placement of an IVC filter. #Left lower lobe vs Bibasilar pneumonia: - F/u BCx. - Zosyn started in the ED. Will continue it and add Azithromycin. #GI bleed: Likely lower GI bleed - Ordered PPI IV BID - Will consult the general surgeon in the a.m. I have ordered for a colonoscopy, as well as an EGD, and will initiate bowel prep. Will monitor for GI bleed #TRACI vs CKD - I have placed a message to nurse for the nurse to call the patient's PCPs office and obtain copies of the patient's labs reflecting the patient's renal function since October of this year, 2024. - Continue NS started in the the ED at 100cc/hr - Strict Is and Os. #Stage I sacrococcygeal ulcer: q2h turns #perineal cyst: Despite extensive evaluation of his testicles, and perineum, and Bottom, I did not see the perineal cyst to which his bcdgsjxh-wi-lru and the ED physician referred. Nevertheless, he is on Zosyn at this time. #Long history of Methamphetamine use - Vsiiwlih-iy-mcl is not sure of the route of usage, but states that they did not have any contact with him until 09/2024, because they did not want their children exposed to drug use. She states that since he came to live with them, he has not used any methamphetamines. Acute hepatitis panel ordered. #IDDM2: #Asthma #COPD: - Ykkvzciy-pe-zuj is adamant that he has Asthma, but she does not know whether he has had a PFT. She also states that she is not sure whether he has COPD. Again consider obtaining records from PCP to ensure his diagnosis - Ordered duonebs #CHF: Heqebyjr-fp-cur states that he has CHF, but she is not sure. Again consider obtaining records from PCP to ensure his diagnosis. - Held Lasix, Lisinopril, Metoprolol succinate. #PVD: #HTN #HLD #BPH #MDD - Held all meds DVT ppx: heparin drip GI ppx: Pantoprazole Code status: Please confirm with family. Daughter in law, Diane Turner at [phone] is the better person to reach. She is also the MPOA and Caregiver. PDMP PDMP Reviewed: Not Reviewed Attestations Medical Necessity Statement*: The patient needs to be hospitalized for greater than 2 midnights for acute hypoxic respiratory failure, secondary to an acute pulmonary embolism, pneumonia, TRACI, and concern for GI bleed. Coding Level of Care Code 04323 High Time for a total of 90 minutes, includes reviewing past or interval history, examining/interviewing patient, placing orders, counseling patient/family/other support, updating patient/family/other support, discussing plan of care with staff, communicating with other healthcare providers, documenting encounter and coordinating care Diagnoses Rectal bleeding K62.5 TRACI (acute kidney injury) N17.9 Pulmonary embolism on left I26.99 Acute respiratory failure with hypoxia J96.01 GI bleed K92.2 Stage I decubitus ulcer and pressure area L89.91
[2025-02-22 19:45] LABS: Troponin 5 2HR Delta -14.2 ABS# (0-10)
[2025-02-22 19:46] LABS: Troponin 5 2HR 222.8 ng/L (0-15)
[2025-02-22] MEDS: piperacillin-tazobactam 3.375 GM in sodium chloride 0.9% (plus) 50 ML IV (20:15)
[2025-02-22] MEDS: sodium chloride 0.9% 1,000 ML 100 ML IV (20:16)
--- NOTE | 2025-02-22 20:33 | USR_ITS ---
PROCEDURE INFORMATION: Exam: US Duplex Lower Extremity Veins, Bilateral Exam date and time: 02/22/2025 8:38 PM Age: 64 years old Clinical indication: Other: Pulmonary embolus visualized on cta. Patient is a poor historian but admits to prior lower extremity dvts in the past. ; Additional info: Pe noted on cta chest TECHNIQUE: Imaging protocol: Real-time duplex ultrasound of the bilateral extremities with 2-D alcazar scale, color Doppler flow and spectral waveform analysis including responses to compression and other maneuvers (when performed) with image documentation. Complete exam focused on the lower extremity veins. COMPARISON: CT abdomen pelvis w con* [id number] 02/22/2025 3:26 PM FINDINGS: Right deep veins: There is mural thickening of the right femoral vein extending through the popliteal vein with a patent central lumen suggesting chronic recanalized DVT. Calf vessels on the right are patent but incompletely compressible compatible with chronic post phlebitic change. No acute thrombosis is evident on the right. Left deep veins: On the left, there is hypoechoic filling defect in the common femoral vein with a patent central channel. Left femoral vein demonstrates mural thickening and irregular areas of flow with similar abnormality extending through the popliteal vein. Calf veins are patent but incompletely compressible compatible with post phlebitic change. No acute superimposed thrombosis appreciated. Superficial veins: Greater saphenous veins at the saphenofemoral junctions are patent bilaterally without thrombus. Soft tissues: Unremarkable. US/[place] [id number] IMPRESSION: Exam demonstrates extensive bilateral post phlebitic change. No convincing acute superimposed DVT although sensitivity is compromised in the setting chronic DVT.
--- NOTE | 2025-02-22 20:50 | USCV_ITS ---
Ralph Turner Age: 64 Gender: M : 1960 Exam Date: 02/22/2025 23:01 Ordering Phys: Lorena Begum MD Technologist: MARINA Exam Location: [facility] [place] Indication: pulmonary embolism, HTN, HLD, IDDM2, COPD, asthma, CHF, CVA, long-term methamphetamin addiction. BP: 115 / 63 HR: 83 Rhythm: Sinus Technical Quality: Adequate MEASUREMENTS (Male / Female) Normal Values 2D ECHO LV Diastolic Diameter PLAX 4.3 cm 4.2 - 5.9 / 3.9 - 5.3 cm IVS Diastolic Thickness 1.2 cm 0.6 - 1.0 / 0.6 - 0.9 cm IVS Systolic Thickness 1.4 cm LVPW Diastolic Thickness 1.2 cm 0.6 - 1.0 / 0.6 - 0.9 cm LVPW Systolic Thickness 1.4 cm LVOT Diameter 1.7 cm LV Ejection Fraction 2D Teich 29.3 % LV Ejection Fraction MOD 4C 19.5 % LV Ejection Fraction MOD 2C 25.9 % LV Ejection Fraction 2C AL 25.6 % LA Diameter 3.1 cm Aorta at Sinotubular Diameter 3.0 cm IVC Diameter 1.7 cm M-MODE LA Ao Ratio MM 0.9 AV Cusp Separation MM 2.0 cm DOPPLER AV Peak Velocity 108.0 cm/s LVOT Peak Velocity 74.0 cm/s AV Area Cont Eq vti 1.6 cm squared AV Area Cont Eq pk 1.5 cm squared MV Peak Velocity 111.0 cm/s MV Area PHT 3.7 cm squared Mitral E to A Ratio 1.1 TV Peak E Velocity 33.0 cm/s PV Peak Velocity 63.0 cm/s FINDINGS Left Ventricle Technically limited quality echocardiogram. Grossly LV systolic function is severely reduced. Regional wall motion abnormalities cannot accurately be assessed because of poor ultrasonic windows. Right Ventricle Grossly hypokinetic Right Atrium Normal in size Left Atrium Dilated Mitral Valve Moderate mitral annular calcification. Mild mitral regurgitation. Aortic Valve Aortic valve is thickened. No significant mitral regurgitation. Tricuspid Valve Insufficient TR jet to evaluate RVSP. Pulmonic Valve Not well visualized Pericardium Normal Aorta Normal in size IVC Appears to be normal CONCLUSIONS Technically limited quality echocardiogram because of poor ultrasonic windows. Grossly LV systolic function is severely reduced. RV is grossly hypokinetic Left atrial dilation Mild mitral regurgitation No comparison studies are available. Christopher Acosta MD (Electronically Signed) Final Date: 23 Feb 2025 11:11 S
[2025-02-22 20:59] LABS: Lactate (Lactic Acid level) 1.8 mmol/L (0.5-2.2)
[2025-02-22 21:05] LABS: Glucose Point of Care 147 mg/dL (70-110)
[2025-02-22] MEDS: pantoprazole 40 mg SDV IVP (22:24)
--- NOTE | 2025-02-22 23:41 | ECG_ITS ---
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 Measurements Intervals [place] Rate: 87 P: 25 [place]: 192 QRS: 10 QRSD: 91 T: 79 QT: 363 QTc: 438 Interpretive Statements SINUS RHYTHM POSSIBLE ANTERIOR MYOCARDIAL INFARCTION , OF INDETERMINATE AGE [30 ms Q WAVE IN V3/V4, OR R < 0.2 mV IN V4] Compared to ECG 02/22/2025 18:15:02 First degree AV block no longer present Myocardial infarct finding still present Electronically Signed On 02-23-2025 09:04:12 CDT by Rupali Parr M.D. [email or web address]
[2025-02-23] VITALS (11 sets, daily range): BP systolic 108–133; BP diastolic 70–86; PULSE 77–94; RESP 18–23; TEMP 36.4–37.2; O2SAT 93–97
[2025-02-23 01:28] LABS: Partial Thromboplastin Time 43.1 SECONDS (23.9-36.7)
[2025-02-23 01:37] LABS: Troponin 5 6HR 292.9 ng/L (0-15)
[2025-02-23 01:38] LABS: Troponin 5 6HR Delta 55.9 ng/L (0-12)
[2025-02-23] MEDS: ipratropium-albuterol 3 mL Neb INHALATION ×4 (02:11→21:03)
[2025-02-23] MEDS: peg /e-lyte soln 4,000 mL Btl 4000 ML PO (02:27)
[2025-02-23 05:09] LABS: INR 0.96 (0.8-1.2)
[2025-02-23] MEDS: sodium chloride 0.9% 1,000 ML 100 ML IV (05:09)
[2025-02-23] MEDS: piperacillin-tazobactam 3.375 GM in sodium chloride 0.9% (plus) 50 ML IV (05:09)
[2025-02-23 05:14] LABS: Alanine Aminotransferase 10 U/L (0-41); Albumin Level 3.2 g/dL (3.5-5.2); Alkaline Phosphatase 88 U/L (40-130); Aspartate Amino Transferase 15 U/L (0-40); Blood Urea Nitrogen 28 mg/dL (8-23); Calcium 8.9 mg/dL (8.5-10.5); Carbon Dioxide 31 mmol/L (22-29); Chloride 100 mmol/L (98-107); Creatinine Clr Calc Pharmacy 69.3411; Globulin 4.1 g/dL (1.3-4.6); Glomerular Filtration Rate 60.6 mL/min (90-130); Glucose 113 mg/dL (65-115); Magnesium 1.7 mg/dL (1.7-2.3); Osmolality Calculated 294 mOsm/kg (285-295); Phosphorus 3.9 mg/dL (2.5-4.5); Sodium 139 mmol/L (136-145); Total Bilirubin 0.2 mg/dL (0.15-1.2); Total Protein 7.3 g/dL (6.6-8.7)
[2025-02-23 05:25] LABS: Hepatitis A Antibody IgM Non-Reactive (Nonreactive); Hepatitis B Core IgM Non-Reactive (Nonreactive); Hepatitis B Surface Antigen Non-Reactive (Nonreactive); Hepatitis C Virus Antibody Non-Reactive (Nonreactive)
[2025-02-23 06:10] LABS: Amphetamines Screen Urine Negative (Negative); Barbiturates Screen Urine Negative (Negative); Benzodiazepines Screen Urine Negative (Negative); Cocaine Screen Urine Negative (Negative); Opiate Screen Urine Negative (Negative); PCP Screen Urine Negative (Negative); THC Screen Urine Negative (Negative)
[2025-02-23 06:36] LABS: Glucose Point of Care 104 mg/dL (70-110)
[2025-02-23 08:05] LABS: Glucose Point of Care 95 mg/dL (70-110)
[2025-02-23] MEDS: AZITHROMYCIN ADD-Vantage 500 MG in 0.9% NaCl ADD-Vantage 250 ML 250 MG IV (08:18)
[2025-02-23] MEDS: pantoprazole 40 mg SDV IVP ×2 (08:19→21:11)
[2025-02-23 08:30] LABS: Basophils % 0.5 %; Eosinophils # 0.4 10^3/uL (0.0-0.8); Eosinophils % 4.9 %; Hematocrit 42.7 % (37-53); Lymphocytes # 1.3 10^3/uL (0.8-4.8); Lymphocytes % 15.3 %; Mean Corpuscular HGB Conc 29.3 g/dL (30-55); Mean Corpuscular Hemoglobin 25.8 pg (27-33); Mean Platelet Volume 11.6 fL (7.4-10.4); Monocytes # 0.8 10^3/uL (0.2-0.9); Monocytes % 8.9 %; Neutrophils # 5.95 10^3/uL (1.8-7.7); Nucleated Red Blood Cells % 0 %; Platelet Count 95 10^3/cmm (157-399); Red Blood Count 4.85 10^6/uL (3.85-5.65); Red Cell Distribution Width 17.5 % (12.1-15.1)
[2025-02-23 08:51] LABS: Partial Thromboplastin Time 48.6 SECONDS (23.9-36.7)
--- NOTE | 2025-02-23 09:00 | P.PN_ITS ---
Subjective 2 Subjective: Overnight labs and H&P reviewed. Patient denies any current rectal bleeding. No rectal bleed has been witnessed on the floor today. Currently on anticoagulation with heparin for PE. Medications: Reviewed: Yes Vitals/I&O/Wt Last Vital Signs Temp 97.8 F 02/23/25 12:00 Pulse 81 02/23/25 12:00 Resp 19 H 02/23/25 12:00 BP 110/70 02/23/25 12:00 Pulse Ox 96 02/23/25 12:00 O2 Del Method Nasal Cannula 02/23/25 12:00 O2 Flow Rate 2 02/23/25 09:02 02/22/25 02/23/25 02/23/25 22:59 06:59 14:59 Intake Total 1150 / 1150 1194.083 / 2344.083 1499.6 / 1499.6 Output Total 600 / 600 300 / 900 1000 / 1000 Balance 550 / 550 894.083 / 1444.083 499.6 / 499.6 Weight last 48 hrs Weight 86.001 kg Weight 84.595 kg Weight 84.595 kg Weight 75.75 kg Physical Exam 2 Narrative: General: No acute distress, AO x2 HEENT: PERRLA, pupils bilaterally equal and reactive, pallors not present Chest: Normal vesicular breath sounds, no added sounds, equal good air entry bilaterally CVS: S1-S2 regular, no murmurs, no tachycardia, no gallops, no rubs Abdomen: Soft, nontender, no organomegaly, bowel sounds present Neuro: No focal deficits, no facial deformity, AO x2 Data 02/23/25 07:55 02/23/25 04:02 Micro: Microbiology 02/23/25 13:08 Occult Blood (FIT) - Final Stool 02/22/25 21:24 Blood Culture - Preliminary Blood SPECIMEN COLLECTED 02/22/25 21:19 Blood Culture - Preliminary Blood SPECIMEN COLLECTED A&P Assessment and plan (1) Rectal bleeding: (2) TRACI (acute kidney injury): (3) Pulmonary embolism on left: (4) Acute respiratory failure with hypoxia: (5) GI bleed: (6) Stage I decubitus ulcer and pressure area: Plan Ralph Turner is a 64 year old male w/ HTN, HLD, IDDM2 w/ diabetic neuropathy in his feet and partially in his hands, Asthma, BPH, MDD, CHF, CVA, L. LE DVT, Long time methamphetamine addict, stopped smoking 2 yrs ago, who was brought to the ED on 02/22/2025 by his caregiver brought for rectal bleeding, increasing confusion and hypoxemia. #Acute hypoxic respiratory failure: Not on O2 at home. Multifactorial causes including PE, possible pneumonia. - Wean as tolerated #Acute PE #Hx of L. LE DVT s/p intervention, per daughter, via the femoral artery that resulted in his L. LE scar - BNP elevated, Trop T elevated. Lactate wnl. - F/u ECHO and b/l LE venous duplex US - Continue heparin gtt started in the ED, but as I told the plzqzdqk-ip-tsq, I will monitor for active GI bleeding. If the patient has an active GI bleed, we will have to reverse the heparin with protamine sulfate, and transfer the patient for placement of an IVC filter. #Left lower lobe vs Bibasilar pneumonia: - F/u BCx. - Zosyn started in the ED. Will continue it and add Azithromycin. #GI bleed: Likely lower GI bleed - Ordered PPI IV BID - Will consult the general surgeon in the a.m. I have ordered for a colonoscopy, as well as an EGD, and will initiate bowel prep. Will monitor for GI bleed #TRACI vs CKD - I have placed a message to nurse for the nurse to call the patient's PCPs office and obtain copies of the patient's labs reflecting the patient's renal function since October of this year, 2024. - Continue NS started in the the ED at 100cc/hr - Strict Is and Os. #Stage I sacrococcygeal ulcer: q2h turns #perineal cyst: Despite extensive evaluation of his testicles, and perineum, and Bottom, I did not see the perineal cyst to which his ttovzums-tg-uld and the ED physician referred. Nevertheless, he is on Zosyn at this time. #Long history of Methamphetamine use - Zxguatjd-fp-npj is not sure of the route of usage, but states that they did not have any contact with him until 09/2024, because they did not want their children exposed to drug use. She states that since he came to live with them, he has not used any methamphetamines. Acute hepatitis panel ordered. #IDDM2: #Asthma #COPD: - Guwpacrf-fo-dra is adamant that he has Asthma, but she does not know whether he has had a PFT. She also states that she is not sure whether he has COPD. Again consider obtaining records from PCP to ensure his diagnosis - Ordered duonebs #CHF: Tvcchryh-jt-gfk states that he has CHF, but she is not sure. Again consider obtaining records from PCP to ensure his diagnosis. - Held Lasix, Lisinopril, Metoprolol succinate. #PVD: #HTN #HLD #BPH #MDD - Held all meds DVT ppx: heparin drip GI ppx: Pantoprazole Code status: Please confirm with family. Daughter in law, Diane Turner at [phone] is the better person to reach. She is also the MPOA and Caregiver. February 23, 2025 Patient admitted overnight due to complaints of hypoxia and dyspnea overnight with O2 sat dropping 76% on room air at home. He was found to have moderate burden of PE in the distal left main pulmonary artery extending into the proximal lobar branches supplying the left lower lobe. RV LV ratio was reported within normal limits on the CT, however echocardiogram is pending. Favor elevated troponins to be a result of heart strain from PE. General surgery service is consulted to assess for colonoscopy as would be prudent to rule out any active sources of bleeding prior to transitioning to DOAC's.Currently hemoglobin has been stable at 12.5. Recheck in 12 hours PDMP PDMP Reviewed: Not Reviewed Attestations 2 Medical Necessity Statement*: Continued admission for heparin drip, general surgery consult to assess for colonoscopy. Coding Level of Care Code Acute Code for Chg Fwd Diagnoses Rectal bleeding K62.5 TRACI (acute kidney injury) N17.9 Pulmonary embolism on left I26.99 Acute respiratory failure with hypoxia J96.01 GI bleed K92.2 Stage I decubitus ulcer and pressure area L89.91
[2025-02-23] MEDS: budesonide 0.5 mg/2 mL Neb 0.25 MG INHALATION ×2 (09:02→21:03)
--- NOTE | 2025-02-23 09:05 | PM.CONSULT ---
Providers/Reason For Consult Consulting Physician/Specialty*: Nina Velázquez DO/General Surgery Reason for Consult*: Rectal Bleeding Requesting Physician: Maya Kumar MD Attending Physician: Maya Kumar MD Primary Care Provider: Wero Galvez DO History of Present Illness History of Present Illness Ralph Turner is a 64 year old male who was admitted last night with medical problems (HTN, HLD, IDDM2, Asthma, BPH, MDD, CHF, CVA, L. LE DVT) with acute respiratory failure who was found to have moderate burden of pulmonary embolism in the distal left main pulmonary artery extending into the proximal lobar branches supplying the left lower lobe. No other pulmonary emboli. The patient has a history of left femoral artery DVT per his daughter. He was started on a heparin drip. Interestingly, he apparently he was brought in for rectal bleeding. His caregiver noted a bowel movement and blood on the shower chair yesterday. Today, the patient was not aware of any rectal bleeding or history of rectal bleeding so I could not get must history in regards to the character of the blood, the color of the blood, or the amount of blood. He cannot recall when his last colonoscopy was and stated that it very well could have been more than 10 years ago in an outside facility. He is not sure whether or not he has hemorrhoids. The patient does not know wether or not he has diverticulosis coli. Review of Systems General: Reports: Other (Limited ROS due to mental status. ) GI: Denies: abdominal pain, nausea, vomiting or hematemesis Medications/Allergies Home Medications ?Medication ?Instructions ?Recorded ?Confirmed ?Last Taken ?Type atorvastatin 10 mg tablet 10 mg PO QPM 03/09/22 02/22/25 02/21/25 History exenatide microspheres 2 mg/0.85 2 mg SUBCUT Q7D 03/09/22 02/22/25 02/18/25 History mL subcutaneous auto-injector (Bymaxwell Payan) lisinopril 20 mg tablet 20 mg PO QPM 03/09/22 02/22/25 02/21/25 History vortioxetine 10 mg tablet 10 mg PO DAILY 03/09/22 02/22/25 02/22/25 History (Trintellix) albuterol sulfate 90 mcg/actuation 1 inh inhalation Q4H PRN Shortness 10/24/24 02/22/25 Unknown History aerosol inhaler Of Breath Or Wheezing budesonide-formoterol HFA 160 2 puff inhalation BID 10/24/24 02/22/25 02/22/25 History mcg-4.5 mcg/actuation aerosol inhaler (Symbicort) insulin aspart U-100 100 unit/mL See Rx Instructions .Route .COMPLEX 10/24/24 02/22/25 Unknown History (3 mL) subcutaneous pen (Novolog FlexPen U-100 Insulin aspart) insulin degludec 200 unit/mL (3 38 unit SUBCUT DAILY 10/24/24 02/22/25 02/21/25 History mL) subcutaneous pen (Tresiba FlexTouch U-200 insulin) metformin 1,000 mg tablet 1,000 mg PO BID 10/24/24 02/22/25 02/22/25 History metoprolol succinate 25 mg 25 mg PO QAM 10/24/24 02/22/25 02/22/25 History tablet,extended release 24 hr ondansetron 4 mg disintegrating 4 mg PO Q6H PRN Nausea And Vomiting 10/24/24 02/22/25 02/22/25 History tablet tamsulosin 0.4 mg capsule 0.4 mg PO QPM 10/24/24 02/22/25 02/21/25 History dapagliflozin propanediol 10 mg 10 mg PO QAM 02/22/25 02/22/25 02/22/25 History tablet (Farxiga) diphenhydramine 25 1 tab PO QPM PRN Pain 02/22/25 02/22/25 Unknown History mg-acetaminophen 500 mg tablet (Tylenol PM Extra Strength) furosemide 40 mg tablet (Lasix) 40 mg PO QAM 02/22/25 02/22/25 02/22/25 History insulin glargine 100 unit/mL (3 28 unit SUBCUT DAILY 02/22/25 02/22/25 Unknown History mL) subcutaneous pen (Lantus Solostar U-100 Insulin) sulfamethoxazole 800 1 tab PO Q12H 02/22/25 02/22/25 02/22/25 History mg-trimethoprim 160 mg tablet Allergies Allergy/AdvReac Type Severity Reaction Status Date / Time No Known Allergies Allergy Unverified 03/09/22 10:38 Current Medications Generic Name Dose Route Start Last Admin Trade Name Freq PRN Reason Stop Dose Admin Albuterol/Ipratropium 3 ml 02/22/25 21:00 02/23/25 09:02 Ipratropium-Albuterol 3 Ml Neb INHALATION 3 ml Q6H.RESP AUDIE Administration Budesonide 0.25 mg 02/22/25 20:50 02/23/25 09:02 Budesonide 0.5 Mg/2 Ml Neb INHALATION 0.25 mg BID.RESPIRATORY AUDIE Administration Heparin Sodium/Sodium Chloride 25,000 unit in 500 mls @ 0 mls/hr 02/22/25 18:00 02/23/25 01:42 Heparin Drip IV 15.84 unit/kg/hr CONT AUDIE 24 mls/hr Protocol Titration Per Protocol Insulin Human Lispro 0 unit 02/22/25 21:00 02/23/25 08:19 Insulin Lispro 100 Unit/1 Ml SUBCUT Not Given WM&BEDTIME AUDIE Protocol Pantoprazole Sodium 40 mg 02/22/25 21:00 02/23/25 08:19 Pantoprazole 40 Mg Sdv IVP 40 mg Q12H AUDIE Administration PFSH Acute PFSH: Medical History (Updated 02/23/25 @ 11:33 by Nina Velázquez MD) Pressure ulcer acquired in [facility] 02/22/2025 - Present on admission. Diabetes PVD (peripheral vascular disease) Postoperative complication of skin involving drainage from surgical wound Social History Smoking and tobacco/nicotine status: former use of tobacco/nicotine Vitals/I&O/Wt Last Vital Signs Temp 97.5 F L 02/23/25 07:57 Pulse 86 02/23/25 09:02 Resp 18 02/23/25 09:02 BP 108/71 02/23/25 07:57 Pulse Ox 94 02/23/25 09:02 O2 Del Method Nasal Cannula 02/23/25 09:02 O2 Flow Rate 2 02/23/25 09:02 02/22/25 02/23/25 02/23/25 22:59 06:59 14:59 Intake Total 1150 / 1150 1194.083 / 2344.083 Output Total 600 / 600 300 / 900 400 / 400 Balance 550 / 550 894.083 / 1444.083 -400 / -400 Weight last 48 hrs Weight 189 lb 9.6 oz Weight 186 lb 8 oz Weight 186 lb 8 oz Weight 167 lb Physical Exam Const: COMMON NORMALS: no acute distress and average body habitus OTHER: Oriented to person, place, and somewhat to situation. He is relatively confused. Resting comforatbly. HENMT: COMMON NORMALS: normocephalic and atraumatic HEAD & SCALP: normocephalic and atraumatic Chest: COMMONS NORMALS: normal inspection of the chest Resp: COMMON NORMALS: normal respiratory effort and No use of accessory muscles OTHER: No supplemental oxygen use. GI: COMMON NORMALS: Normal to inspection, nondistended, normoactive bowel sounds present, Soft to palpation and non-tender PALPATION: Yes Soft to palpation : OTHER: Digital Rectal Exam: Normal sphincter tone. No prominent external hemorrhoids. No palpable masses or tumors. Enlarged prostate. Light brown stool per rectum, no melanotic stool and no bright red blood per rectum. Extremity: NARRATIVE EXTREMITY EXAM: Extremities pink and well-perfused. Neuro: COMMON NORMALS: moves all extremities and no focal motor deficits Psych: COMMON NORMALS: cooperative and speech normal SPEECH: Yes normal speech Skin: NARRATIVE SKIN EXAM: Erythematous skin buttock and sacral regions. Data 02/23/25 07:55 02/23/25 04:02 Micro: Microbiology 02/22/25 21:24 Blood Culture - Preliminary Blood SPECIMEN COLLECTED 02/22/25 21:19 Blood Culture - Preliminary Blood SPECIMEN COLLECTED A&P Assessment and plan (1) Rectal bleeding: --Rectal bleeding 02/22/2025: resolved - although a fecal occult stool study is ordered and pending --This patient is hemodynamically normal, his pulse has been in the 80s, and hgb has been stable in the 12s today and yesterday -Place two large bore IVs -Fluid resuscitation and blood products (only if needed) -Supplemental oxygen if needed -Monitor bowel movements, CBC, and hemodynamics -Continue Heprain drip for PE, if urgent endoscopy needed, may stop Heparin drip if it is indicated -Doubt upper GI source as he has not had nausea, vomiting abdominal pain, or hematemasis (although this might be wasier to tell if we knew whether he had melena or hematochezia) but would be prudent to keep him on Pantoprazole - if no further issues, he may be transitioned to oral Pantoprazole if indicated -If rectal bleeding resumes and the volume of bleeding is high and/or he is hemodynamically unstable he will likely need transfer to a higher level of care with interventional radiology and GI capabilites -If the rectal bleeding resolve with conservative measures, outpatient colonoscopy versus EGD/colonoscopy would be reasonable, with of course holding oral anticoagulant prior to endoscopy. -I will continue to see this patient on a daily basis, as his condition could change. (2) Rectal arterial hemorrhage: (3) Acute respiratory failure with hypoxia: (4) Pulmonary embolism on left: (5) Diabetes mellitus: (6) Pulmonary embolism: (7) Pressure ulcer acquired in [facility]: (8) Diabetes: (9) PVD (peripheral vascular disease): PDMP PDMP Reviewed: Not Reviewed Coding Level of Care Code Acute Code for [facility]g Fwd Diagnoses Rectal bleeding K62.5 Rectal arterial hemorrhage K62.5 Acute respiratory failure with hypoxia J96.01 Pulmonary embolism on left I26.99 Diabetes mellitus E11.9 Pulmonary embolism I26.99 Pressure ulcer acquired in [facility] L89.90; Y95 PVD (peripheral vascular disease) I73.9
--- NOTE | 2025-02-23 09:20 | PC.SOCIAL ---
IMM Update Pg 2 of IMM updated and reviewed with patient, who verbalized understanding. Copy provided.
[2025-02-23 11:13] LABS: Glucose Point of Care 110 mg/dL (70-110)
[2025-02-23] MEDS: cefTRIAXone 1,000 mg SDV 1000 MG IVP (12:01)
[2025-02-23 16:19] LABS: Glucose Point of Care 106 mg/dL (70-110)
[2025-02-23 16:26] LABS: Partial Thromboplastin Time 49.3 SECONDS (23.9-36.7)
[2025-02-23] MEDS: heparin drip 25,000 UNIT/500 ML PREMIX 28 UNIT IV (16:35)
[2025-02-23] MEDS: heparin 5,000 unit/mL INJ 1 mL IVP (17:09)
--- NOTE | 2025-02-23 18:16 | PC.NURSE ---
report called to [facility] Talked to Ela to give report for this transfer.
--- NOTE | 2025-02-23 18:38 | PC.NURSE ---
notified family on transfer Called Son Cole to notify him on pt's transfer to [facility] 252 bed 2. also updated son on pt's condition and treatment plan.
[2025-02-23 19:03] LABS: Basophils % 0.4 %; Eosinophils # 0.3 10^3/uL (0.0-0.8); Eosinophils % 3.5 %; Hematocrit 40.2 % (37-53); Lymphocytes # 1.2 10^3/uL (0.8-4.8); Mean Corpuscular HGB Conc 30.1 g/dL (30-55); Mean Corpuscular Hemoglobin 25.7 pg (27-33); Mean Corpuscular Volume 85.4 fl (82-101); Mean Platelet Volume 11.2 fL (7.4-10.4); Monocytes # 0.5 10^3/uL (0.2-0.9); Monocytes % 7.4 %; Neutrophils # 5.09 10^3/uL (1.8-7.7); Neutrophils % 71.4 %; Nucleated Red Blood Cells % 0 %; Platelet Count 174 10^3/cmm (157-399); Red Blood Count 4.71 10^6/uL (3.85-5.65); Red Cell Distribution Width 17.4 % (12.1-15.1); White Blood Count 7.13 10^3/uL (3.29-11.43)
[2025-02-23 20:12] LABS: Slide Review Slide Review Perform
[2025-02-23] MEDS: insulin lispro 100 unit/1 mL SUBCUT (21:10)
[2025-02-23 21:13] LABS: Glucose Point of Care 155 mg/dL (70-110)
[2025-02-23 22:53] LABS: Partial Thromboplastin Time 75.7 SECONDS (23.9-36.7)
[2025-02-24] VITALS (10 sets, daily range): BP systolic 122–148; BP diastolic 71–83; PULSE 78–94; RESP 16–18; TEMP 36.6–36.8; O2SAT 92–95
[2025-02-24 05:26] LABS: Basophils % 0.5 %; Eosinophils # 0.4 10^3/uL (0.0-0.8); Eosinophils % 4.9 %; Hematocrit 41.4 % (37-53); Lymphocytes % 12.3 %; Mean Corpuscular Hemoglobin 25.8 pg (27-33); Mean Corpuscular Volume 86.1 fl (82-101); Monocytes # 0.7 10^3/uL (0.2-0.9); Monocytes % 8.2 %; Neutrophils # 6.01 10^3/uL (1.8-7.7); Neutrophils % 73.9 %; Nucleated Red Blood Cells % 0 %; Platelet Count 69 10^3/cmm (157-399); Red Blood Count 4.81 10^6/uL (3.85-5.65); Red Cell Distribution Width 17.4 % (12.1-15.1); White Blood Count 8.14 10^3/uL (3.29-11.43)
[2025-02-24 05:35] LABS: Slide Review Slide Review Perform
[2025-02-24 05:43] LABS: Partial Thromboplastin Time 60.9 SECONDS (23.9-36.7)
[2025-02-24 05:52] LABS: Alanine Aminotransferase 8 U/L (0-41); Albumin Level 3.1 g/dL (3.5-5.2); Alkaline Phosphatase 82 U/L (40-130); Anion Gap 14.6 (5-19); Aspartate Amino Transferase 14 U/L (0-40); Blood Urea Nitrogen 13 mg/dL (8-23); Carbon Dioxide 30 mmol/L (22-29); Chloride 98 mmol/L (98-107); Creatinine Clr Calc Pharmacy 91.6883; Globulin 3.9 g/dL (1.3-4.6); Glomerular Filtration Rate 84.4 mL/min (90-130); Glucose 83 mg/dL (65-115); Osmolality Calculated 285 mOsm/kg (285-295); Potassium 4.6 mmol/L (3.5-5.1); Sodium 138 mmol/L (136-145); Total Bilirubin 0.3 mg/dL (0.15-1.2)
[2025-02-24 07:21] LABS: Glucose Point of Care 136 mg/dL (70-110)
[2025-02-24] MEDS: budesonide 0.5 mg/2 mL Neb 0.25 MG INHALATION (08:41)
[2025-02-24] MEDS: ipratropium-albuterol 3 mL Neb INHALATION ×2 (08:41→13:31)
--- NOTE | 2025-02-24 08:56 | P.PN_ITS ---
Subjective 2 Subjective: The patient was seen and evaluated at bedside this morning. He denied abdominal pain, nausea, abdominal distention or rectal bleeding. He also denied shortness of breath, dizziness, lightheadedness, or change in mentation. Vitals/I&O/Wt Last Vital Signs Temp 97.8 F 02/24/25 07:54 Pulse 79 02/24/25 08:00 Resp 16 02/24/25 08:00 BP 122/78 02/24/25 07:54 Pulse Ox 95 02/24/25 08:00 O2 Del Method Nasal Cannula 02/24/25 08:00 O2 Flow Rate 1 02/24/25 08:00 02/23/25 02/24/25 02/24/25 22:59 06:59 14:59 Intake Total 144.65 / 1762.25 358.367 / 2120.617 Output Total 800 / 1925 Balance -655.35 / -162.75 358.367 / 195.617 Weight last 48 hrs Weight 185 lb 14.4 oz Weight 189 lb 9.6 oz Weight 186 lb 8 oz Weight 186 lb 8 oz Weight 167 lb Physical Exam 2 Const: COMMON NORMALS: no acute distress and average body habitus HENMT: COMMON NORMALS: normocephalic and atraumatic HEAD & SCALP: n ormocephalic and atraumatic Chest: COMMONS NORMALS: normal inspection of the chest Resp: COMMON NORMALS: normal respiratory effort and No use of accessory muscles OTHER: 1 L supplemental oxygen via nasal cannul a. GI: COMMON NORMALS: Soft to palpation and non-tender PALPATION: Yes Soft to palpation OTHER: Perirectal region examined: Light brown stool noted. No melena and no hematochezia. Extremity: NARRATIVE EXTREMITY EXAM: Extremities pink and well-perfused. Neuro: COMMON NORMALS: moves all extremities Psych: COMMON NORMALS: normal affect Data 02/24/25 04:58 02/24/25 04:58 Micro: Microbiology 02/22/25 21:24 Blood Culture - Preliminary Blood NEGATIVE TO DATE 02/22/25 21:19 Blood Culture - Preliminary Blood NEGATIVE TO DATE 02/23/25 13:08 Occult Blood (FIT) - Final Stool A&P Assessment and plan (1) Rectal bleeding: --Rectal bleeding 02/22/2025: resolved --This patient is hemodynamically normal, his pulse has been in the 80s, and hgb has been stable in the 12s for 3 days -- Fecal occult stool Specimen positive for occult blood. -- Continue to monitor bowel movements, CBC, and hemodynamics -- Continue Heprain drip for PE per hospitalist, if urgent endoscopy needed, may stop Heparin drip if it is indicated -- Doubt upper GI source as he has not had nausea, vomiting abdominal pain, or hematemasis but would be prudent to keep him on Pantoprazole - if no further issues, he may be transitioned to oral Pantoprazole if indicated -- If rectal bleeding resumes and the volume of bleeding is high and/or he is hemodynamically unstable he will likely need transfer to a higher level of care with interventional radiology and GI capabilites. Patient has not had any additional rectal bleeding as noted above in the HPI and physical exam. However, in discussions with the hospitalist, the patient is being transferred today due to a drop in platelets. And the need for evaluation by hematology. -- If the rectal bleeding resolves with conservative measures, outpatient colonoscopy versus EGD/colonoscopy would be reasonable, with of course holding oral anticoagulant prior to endoscopy. A referral has been made to the general surgery clinic to arrange for this. (2) TRACI (acute kidney injury): (3) Pulmonary embolism on left: (4) Acute respiratory failure with hypoxia: (5) GI bleed: (6) Stage I decubitus ulcer and pressure area: Nona Turner is a 64 year old male w/ HTN, HLD, IDDM2 w/ diabetic neuropathy in his feet and partially in his hands, Asthma, BPH, MDD, CHF, CVA, L. LE DVT, Long time methamphetamine addict, stopped smoking 2 yrs ago, who was brought to the ED on 02/22/2025 by his caregiver brought for rectal bleeding, increasing confusion and hypoxemia. #Acute hypoxic respiratory failure: Not on O2 at home. Multifactorial causes including PE, possible pneumonia. - Wean as tolerated #Acute PE #Hx of L. LE DVT s/p intervention, per daughter, via the femoral artery that resulted in his L. LE scar - BNP elevated, Trop T elevated. Lactate wnl. - F/u ECHO and b/l LE venous duplex US - Continue heparin gtt started in the ED, but as I told the [id number], I will monitor for active GI bleeding. If the patient has an active GI bleed, we will have to reverse the heparin with protamine sulfate, and transfer the patient for placement of an IVC filter. #Left lower lobe vs Bibasilar pneumonia: - F/u BCx. - Zosyn started in the ED. Will continue it and add Azithromycin. #GI bleed: Likely lower GI bleed - Ordered PPI IV BID - Will consult the general surgeon in the a.m. I have ordered for a colonoscopy, as well as an EGD, and will initiate bowel prep. Will monitor for GI bleed #TRACI vs CKD - I have placed a message to nurse for the nurse to call the patient's PCPs office and obtain copies of the patient's labs reflecting the patient's renal function since October of this year, 2024. - Continue NS started in the the ED at 100cc/hr - Strict Is and Os. #Stage I sacrococcygeal ulcer: q2h turns #perineal cyst: Despite extensive evaluation of his testicles, and perineum, and Bottom, I did not see the perineal cyst to which his [id number] and the ED physician referred. Nevertheless, he is on Zosyn at this time. #Long history of Methamphetamine use - Gbiitxna-ug-nau is not sure of the route of usage, but states that they did not have any contact with him until 09/2024, because they did not want their children exposed to drug use. She states that since he came to live with them, he has not used any methamphetamines. Acute hepatitis panel ordered. #IDDM2: #Asthma #COPD: - [id number]-swc is adamant that he has Asthma, but she does not know whether he has had a PFT. She also states that she is not sure whether he has COPD. Again consider obtaining records from PCP to ensure his diagnosis - Ordered duonebs #CHF: [id number] states that he has CHF, but she is not sure. Again consider obtaining records from PCP to ensure his diagnosis. - Held Lasix, Lisinopril, Metoprolol succinate. #PVD: #HTN #HLD #BPH #MDD - Held all meds DVT ppx: heparin drip GI ppx: Pantoprazole Code status: Please confirm with family. Daughter in law, Diane Turner at [phone] is the better person to reach. She is also the MPOA and Caregiver. February 23, 2025 Patient admitted overnight due to complaints of hypoxia and dyspnea overnight with O2 sat dropping 76% on room air at home. He was found to have moderate burden of PE in the distal left main pulmonary artery extending into the proximal lobar branches supplying the left lower lobe. RV LV ratio was reported within normal limits on the CT, however echocardiogram is pending. Favor elevated troponins to be a result of heart strain from PE. General surgery service is consulted to assess for colonoscopy as would be prudent to rule out any active sources of bleeding prior to transitioning to DOAC's.Currently hemoglobin has been stable at 12.5. Recheck in 12 hours PDMP PDMP Reviewed: Not Reviewed Attestations 2 Medical Necessity Statement*: Transfer to higher level of care by primary team. Coding Level of Care Code Acute Code for [facility] Fwd Diagnoses Rectal bleeding K62.5 TRACI (acute kidney injury) N17.9 Pulmonary embolism on left I26.99 Acute respiratory failure with hypoxia J96.01 GI bleed K92.2 Stage I decubitus ulcer and pressure area L89.91
[2025-02-24 09:17] LABS: Glucose Point of Care 204 mg/dL (70-110)
[2025-02-24] MEDS: bivalirudin 250 MG in sodium chloride 0.9% 500 ML 25.3 MG IV (09:27)
[2025-02-24] MEDS: pantoprazole 40 mg SDV IVP (09:33)
--- NOTE | 2025-02-24 09:42 | PM.TDS ---
Transfer Summary Providers Date of Admission: 02/22/25 18:21 Date of Discharge/Transfer: 02/24/25 Attending Provider at Admission: Concepcion Winchester MD Attending Provider at Transfer: Maya Kumar MD Primary Care Provider: Wero Galvez DO Transfer Plans: Anticipated date of transfer: 02/24/25. Receiving Facility: [facility] . Receiving Provider: Dr. Flores, Hospitalist . Diagnoses at Discharge Discharge Diagnosis (1) Rectal bleeding: Status: Acute (2) TRACI (acute kidney injury): Status: Acute (3) Pulmonary embolism on left: Status: Acute (4) Acute respiratory failure with hypoxia: Status: Acute (5) GI bleed: Status: Acute (6) Stage I decubitus ulcer and pressure area: Status: Acute Reason for Visit Reason for Visit Weakness, Gi Bleed Hospital Course Hospital Course Patient is a 64-year-old male with a past medical history HTN, HLD, IDDM2 w/ diabetic neuropathy in his feet and partially in his hands, Asthma, BPH, MDD, CHF, CVA with memory disturbance, L. LE DVT, Long time methamphetamine addict, stopped smoking 2 yrs ago, who was brought to the ED on 02/22/2025 by his caregiver brought for rectal bleeding, increasing confusion and hypoxemia. CTA of the chest was performed which showed moderate burden of pulmonary embolism in the distal main pulmonary artery extending into the proximal lobar branches supplying the left lower lobe. No other PE was encountered. Echocardiogram was performed which revealed close LV systolic dysfunction with an estimated EF of 25 to 30% and also evidence of right ventricular hypokinesia. His troponins were noted to be elevated with a baseline numbers of 237 trending up to 292 at 6 hours with a positive delta of 50., He denies any chest pain. EKG is not showing any acute ST-T wave abnormalities. Lower extremity Doppler was performed which shows changes suggestive bilaterally with chronic phlebitis versus chronic DVT not excluded. He was started on heparin anticoagulation. On day of admission was reviewed, his platelet count was noted to be at 195,000 dropping down to 95,000 on the , and today dropped further to 69,000. He does not currently have any evidence of active bleed. Patient's family had reported rectal bleeding which was noted as patient got off of the shower chair at home. Reportedly he has a history of internal hemorrhoids. Hemoglobin has remained stable during the course of admission at 12.4. No active bleed was encountered during the admission however his FOBT did result positive. General surgery was consulted and colonoscopy was deferred as an outpatient. Since patient's platelet count today dropped to 69,000, his anticoagulation was changed from heparin to Angiomax gtt. He does not currently meet the timeline for HIT therefore would need some further evaluation with regards to his low platelet counts. Unfortunately we do not have hematology service available at our hospital. Since patient needs to continue anticoagulation in a high risk setting of falling platelets for his PE and also potentially an NSTEMI, patient would be better served by being at a higher center with availability of hematology to follow alongside in patient's management. Additionally should patient develop rectal bleeding again, it is recommended that GI or IR consultation be sought in that situation, neither of which are available at our hospital. No prior echocardiogram is available to compare, therefore it is hard to know if the elevated troponins are related to the current PE versus if there is an additional component of ACS contributing here. Since patient is otherwise chest pain-free without dynamic changes on EKG, more likely that PE is a major contributor here. However he may benefit from ischemic cardiac evaluation prior to discharge. Patient does report a past history of CAD with stents placed several years ago, however unable to give me any details about this at this present time. Patient has been accepted for transfer at [facility]. Bed is currently awaited. Physical Exam Narrative: General: No acute distress, AO x3 HEENT: PERRLA, pupils bilaterally equal and reactive, pallors not present Chest: Normal vesicular breath sounds, no added sounds, equal good air entry bilaterally CVS: S1-S2 regular, no murmurs, no tachycardia, no gallops, no rubs Abdomen: Soft, nontender, no organomegaly, bowel sounds present Neuro: No focal deficits, no facial deformity, AO x3, power 5/5 in all limbs TS Data Studies Completed and Pending Pending at discharge Category Date Time Status Blood Culture Stat Lab 02/22/25 21:24 Results Complete Blood Count w/Auto AM LABS Lab 02/25/25 04:00 Ordered Comprehensive Metabolic Panel AM LABS Lab 02/25/25 04:00 Ordered PTT [Partial Thromboplastin Time] Routine Lab 02/24/25 11:45 Ordered Completed Studies During Hospitalization Category Date Time Status CT abdomen pelvis w con* [id number] Stat Cat Scan 02/22/25 14:[address] angio chest PE protcl [id number] Stat Cat Scan 02/22/25 15:[address] head wo con* [id number] Stat Cat Scan 02/22/25 14:56 Completed XR chest 1V portable [id number] Stat Exams 02/22/25 14:45 Completed CV. echo complete* [id number] Routine Ultrasound 02/22/25 20:50 Completed US venous duplex lower extremity bilat [CV venous Ultrasound 02/22/25 20:33 [place] [id number]] Routine Laboratory Last Values WBC 8.14 10^3/uL (3.29-11.43) 02/24/25 04:58 Corrected WBC Cancelled 02/23/25 18:26 RBC 4.81 10^6/uL (3.85-5.65) 02/24/25 04:58 Hgb 12.40 g/dL (11.27-16.99) 02/24/25 04:58 Hct 41.4 % (37-53) 02/24/25 04:58 MCV 86.1 fl (82-101) 02/24/25 04:58 MCH 25.8 pg (27-33) L 02/24/25 04:58 MCHC 30.0 g/dL (30-55) 02/24/25 04:58 RDW 17.4 % (12.1-15.1) H 02/24/25 04:58 Plt Count 69 10^3/cmm (157-399) L D 02/24/25 04:58 MPV TNP 02/24/25 04:58 Gran % Cancelled 02/23/25 18:26 Neut % (Auto) 73.9 % 02/24/25 04:58 Lymph % (Auto) 12.3 % 02/24/25 04:58 Mckinley % (Auto) 8.2 % 02/24/25 04:58 Eos % (Auto) 4.9 % 02/24/25 04:58 Baso % (Auto) 0.5 % 02/24/25 04:58 Neut # (Auto) 6.01 10^3/uL (1.8-7.7) 02/24/25 04:58 Lymph # (Auto) 1.0 10^3/uL (0.8-4.8) 02/24/25 04:58 Mckinley # (Auto) 0.7 10^3/uL (0.2-0.9) 02/24/25 04:58 Eos # (Auto) 0.4 10^3/uL (0.0-0.8) 02/24/25 04:58 Baso # (Auto) 0.0 10^3/uL (0.0-0.1) 02/24/25 04:58 Absolute Gran (auto) Cancelled 02/23/25 18:26 Nucleated RBC % (auto) 0 % 02/24/25 04:58 Nucleated RBCs # 0.0 /100WBC 02/24/25 04:58 PT 13.50 SECONDS (12.1-14.9) 02/23/25 04:02 INR 0.96 (0.8-1.2) 02/23/25 04:02 APTT 60.9 SECONDS (23.9-36.7) H 02/24/25 04:58 Specimen Type Arterial 02/22/25 15:27 Sample Site Radial, right 02/22/25 15:27 ABG pH 7.37 (7.35-7.45) 02/22/25 15:27 ABG pCO2 55.5 mmHg (35-45) H 02/22/25 15:27 ABG pO2 65.6 mmHg (80.0-100.0) L 02/22/25 15:27 ABG HCO3 31.9 mmol/L (22-26) H 02/22/25 15:27 ABG O2 Saturation 92.3 02/22/25 15:27 ABG Base Excess 5.2 mmol/L (-2.0-2.0) H 02/22/25 15:27 Amanuel Test Pos 02/22/25 15:27 A-a O2 Gradient 1.9 mmHg (5-10) L 02/22/25 15:27 Hematocrit 37.2 % (42-52) L 02/22/25 15:27 Hgb O2 Saturation 90.9 % (95-100) L 02/22/25 15:27 Carboxyhemoglobin 1.4 %THgb (0.4-20.1) 02/22/25 15: Methemoglobin 0.1 % (0.4-1.5) L 02/22/25 15:27 Total Hemoglobin 12.1 g/dL (14-18) L 02/22/25 15:27 Sodium 138.0 mmol/L (131-143) 02/22/25 15:27 Potassium 4.8 mmol/L (3.5-5.0) 02/22/25 15:27 Glucose 77.0 mg/dL (70-115) 02/22/25 15:27 Ionized Calcium 1.2 mmol/L (1.1-1.4) 02/22/25 15:27 O2 Delivery Device Nc 02/22/25 15:27 O2 Liters/Min 3.0 % 02/22/25 15:27 Pump Servicer Supervisor ID [place] 02/22/25 15:27 Sodium 138 mmol/L (136-145) 02/24/25 04:58 Potassium 4.6 mmol/L (3.5-5.1) 02/24/25 04:58 Chloride 98 mmol/L (98-107) 02/24/25 04:58 Carbon Dioxide 30 mmol/L (22-29) H 02/24/25 04:58 Anion Gap 14.6 (5-19) 02/24/25 04:58 BUN 13 mg/dL (8-23) 02/24/25 04:58 Creatinine 0.9 mg/dL (0.7-1.2) 02/24/25 04:58 GFR Calculation 84.4 mL/min (90-130) L 02/24/25 04:58 Glucose 83 mg/dL (65-115) 02/24/25 04:58 POC Glucose 204 mg/dL (70-110) H 02/24/25 09:13 Calculated Osmolality 285 mOsm/kg (285-295) 02/24/25 04:58 Lactate 1.8 mmol/L (0.5-2.2) 02/22/25 18:04 Calcium 9.0 mg/dL (8.5-10.5) 02/24/25 04:58 Phosphorus 3.9 mg/dL (2.5-4.5) 02/23/25 04:02 Magnesium 1.7 mg/dL (1.7-2.3) 02/23/25 04:02 Total Bilirubin 0.3 mg/dL (0.15-1.2) 02/24/25 04:58 AST 14 U/L (0-40) 02/24/25 04:58 ALT 8 U/L (0-41) 02/24/25 04:58 Alkaline Phosphatase 82 U/L (40-130) 02/24/25 04:58 Creatine Kinase 71 U/L (39-308) 02/22/25 14:59 Troponin T Baseline 237 ng/L (0-15) H* 02/22/25 18:04 Troponin T 120 Minute 222.8 ng/L (0-15) H 02/22/25 18:53 Delta Troponin T -14.2 ABS# (0-10) L 02/22/25 18:53 Troponin T Hi Sens 6Hr 292.9 ng/L (0-15) H 02/23/25 01:00 Troponin T Hi Sens 6Hr Delta 55.9 ng/L (0-12) H* 02/23/25 01:00 NT-Pro-B Natriuret Pep 1871 pg/mL (0-125) H 02/22/25 14:59 Total Protein 7.0 g/dL (6.6-8.7) 02/24/25 04:58 Albumin 3.1 g/dL (3.5-5.2) L 02/24/25 04:58 Globulin 3.9 g/dL (1.3-4.6) 02/24/25 04:58 Urine Color Yellow (Yellow) 02/22/25 15:22 Urine Appearance Clear (CLEAR) 02/22/25 15:22 Urine pH 6.5 (5-7) 02/22/25 15:22 Ur Specific [place] 1.019 (1.005-1.030) 02/22/25 15:22 Urine Protein Negative (Negative) 02/22/25 15:22 Urine Glucose (UA) 3+ (Normal) H 02/22/25 15:22 Urine Ketones Negative (Negative) 02/22/25 15:22 Urine Blood Negative (Negative) 02/22/25 15: Urine Nitrate Negative (Negative) 02/22/25 15: Urine Bilirubin Negative (Negative) 02/22/25 15:22 Urine Urobilinogen 1.0 mg/dL (Negative) 02/22/25 15:22 Ur Leukocyte Esterase Negative (Negative) 02/22/25 15:22 Urine RBC 0-2 /hpf (0-2) 02/22/25 15:22 Urine WBC 0-5 /hpf (0-5) 02/22/25 15:22 Ur Squamous Epith Cells 0-5 /hpf (0-5) 02/22/25 15:22 Amorphous Sediment Not Reportable 02/22/25 15:22 Urine Bacteria None seen /hpf (NONE) 02/22/25 15:22 Hyaline Casts 8.26 /lpf 02/22/25 15:22 Urine Opiates Screen Negative ng/mL (Negative) 02/23/25 Unknown Ur Barbiturates Screen Negative ng/mL (Negative) 02/23/25 Unknown Ur Phencyclidine Scrn Negative ng/mL (Negative) 02/23/25 Unknown Ur Amphetamines Screen Negative ng/mL (Negative) 02/23/25 Unknown U Benzodiazepines Scrn Negative ng/mL (Negative) 02/23/25 Unknown Urine Cocaine Screen Negative ng/mL (Negative) 02/23/25 Unknown U Marijuana (THC) Screen Negative ng/mL (Negative) 02/23/25 Unknown Hepatitis A IgM Ab Non-reactive (Nonreactive) 02/23/25 04:02 Hep Bs Antigen Non-reactive (Nonreactive) 02/23/25 04:02 Hep B Core IgM Ab Non-reactive (Nonreactive) 02/23/25 04:02 Hepatitis C Antibody Non-reactive (Nonreactive) 02/23/25 04:02 Radiology Impressions Abdomen/Pelvis CT 02/22/25 14:45 IMPRESSION: 1. No acute findings in the abdomen or pelvis. 2. Possible filling defect in the left pulmonary artery branch supplying the left lower lobe. This is not well visualized on this CT scan of the abdomen and pelvis. Recommend further evaluation with a dedicated CT angiogram of the chest. 3. Subsegmental atelectasis versus infiltrate in visualized left lower lobe. Hepatic steatosis. 4. Mild nonspecific prostatic enlargement. COMMENTS: Consistent with the [employer]'s Incidental Findings Committee white paper (J Am Tami Radiol 2018): Any incidental renal lesion less than 1 cm or classified as too small to characterize, or any incidental cystic renal lesion characterized as simple-appearing, is likely benign. No follow-up imaging is recommended for these lesions per consensus recommendations based on imaging criteria. ADDENDUM: 02/22/25 6260 THIS REPORT CONTAINS FINDINGS THAT MAY BE CRITICAL TO PATIENT CARE. The findings were verbally communicated via telephone conference with YOVANY CASTILLO at 3:48 PM CDT on 02/22/2025. The findings were acknowledged and understood. Chest X-Ray 02/22/25 14:45 IMPRESSION: 1. No acute cardiopulmonary finding. 2. Mild cardiac enlargement unchanged. LEFT basal plaque atelectasis. Head CT 02/22/25 14:56 IMPRESSION: 1. No acute intracranial findings. 2. 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 3. [id number] diffuse parenchymal volume loss. 4. Mild chronic microangiopathic white matter changes. Chest CTA 02/22/25 15:55 IMPRESSION: 1. Moderate burden of pulmonary embolism in the distal left main pulmonary artery extending into the proximal lobar branches supplying the left lower lobe. No other pulmonary emboli. 2. Atherosclerotic plaquing of the thoracic aorta. No aneurysm or signs of dissection. 3. Heart RV/LV ratio within normal limits. 4. Moderate bandlike opacities and dependent consolidation in the left lower lobe. Differential diagnosis includes atelectasis, pneumonia, or pulmonary infarcts. 5. Moderate cardiomegaly. ADDENDUM: 02/22/25 1840 THIS REPORT CONTAINS FINDINGS THAT MAY BE CRITICAL TO PATIENT CARE. The findings were verbally communicated via telephone conference with YOVANY CASTILLO at 5:05 PM CDT on 02/22/2025. The findings were acknowledged and understood. Venous Duplex 02/22/25 20:33 IMPRESSION: Exam demonstrates extensive bilateral post phlebitic change. No convincing acute superimposed DVT although sensitivity is compromised in the setting chronic DVT. Recent Clincial Data Last Vital Signs Temp 97.8 F 02/24/25 07:54 Pulse 79 02/24/25 08:00 Resp 16 02/24/25 08:00 BP 122/78 02/24/25 07:54 Pulse Ox 95 02/24/25 08:00 O2 Del Method Nasal Cannula 02/24/25 08:00 O2 Flow Rate 1 02/24/25 08:00 Vital Signs Temp Pulse Resp BP Pulse Ox O2 Del Method O2 Flow Rate 02/24/25 08:00 79 16 95 Nasal Cannula 1 02/24/25 07:54 97.8 F 93 16 122/78 94 Nasal Cannula 02/24/25 04:00 98.3 F 90 18 138/71 93 Nasal Cannula 02/24/25 03:30 88 02/24/25 00:00 98.2 F 94 17 124/74 92 Nasal Cannula Intake & Output/Weight 02/22/25 02/23/25 02/24/25 02/25/25 06:59 06:59 06:59 06:59 Intake Total 2344.083 / 2344.083 2120.617 / 2120.617 381.633 / 381.633 Output Total 900 / 900 1925 / 1925 Balance 1444.083 / 1444.083 195.617 / 195.617 381.633 / 381.633 Weight 86.001 kg 84.323 kg Vitals Last Vital Signs Temp 97.8 F 02/24/25 07:54 Pulse 79 02/24/25 08:00 Resp 16 02/24/25 08:00 BP 122/78 02/24/25 07:54 Pulse Ox 95 02/24/25 08:00 O2 Del Method Nasal Cannula 02/24/25 08:00 O2 Flow Rate 1 02/24/25 08:00 TS Medications Medications Acetaminophen (Acetaminophen 325 Mg Tablet) 650 mg PO Q6H PRN PRN Reason: Mild/Mod Pain Or Temp >/= 101 Hydrocodone Bitart/Acetaminophen (Hydrocodone-Acetaminophen 5-325 Mg Tablet) 1 tab PO Q4H PRN PRN Reason: MODERATE TO SEVERE PAIN Albuterol/Ipratropium (Ipratropium-Albuterol 3 Ml Neb) 3 ml INHALATION Q6H.RESP AUDIE Last Admin: 02/24/25 08:41 Dose: 3 ml Budesonide (Budesonide 0.5 Mg/2 Ml Neb) 0.25 mg INHALATION BID.RESPIRATORY AUDIE Last Admin: 02/24/25 08:41 Dose: 0.25 mg Ceftriaxone Sodium (Ceftriaxone 1,000 Mg Sdv) 1,000 mg IVP Q24H AUDIE; Protocol Last Admin: 02/23/25 12:01 Dose: 1,000 mg Glucagon (Glucagon 1 Mg/Ml Kit 1 Ml) 1 mg IM ONCE PRN; Protocol PRN Reason: Adult Acute Hypoglycemia Nursing Prot. Dextrose (D5w) 500 mls @ 0 mls/hr IV ONCE PRN; Protocol PRN Reason: Adult Acute Hypoglycemia Prot Dextrose (D10w) 125 mls @ 750 mls/hr IV PRN PRN; Protocol PRN Reason: Adult Acute Hypoglycemia Nursing Protocol Dextrose (D10w) 250 mls @ 1,000 mls/hr IV PRN PRN; Protocol PRN Reason: Adult Acute Hypoglycemia Nursing Protocol Bivalirudin 250 mg/ Sodium (Chloride) 500 mls @ 25.3 mls/hr IV .[id number] [facility] Last Admin: 02/24/25 09:27 Dose: 25.3 mls/hr Insulin Human Lispro (Insulin Lispro 100 Unit/1 Ml) 0 unit SUBCUT WM&BEDTIME [facility]; Protocol Last Admin: 02/24/25 08:11 Dose: Not Given Naloxone HCl (Naloxone 0.4 Mg/Ml Sdv) 0.1 mg IVP Q2M PRN PRN Reason: OPIATERV Ondansetron HCl (Ondansetron 4 Mg Tablet) 4 mg PO Q6H PRN PRN Reason: NAUSEA Ondansetron HCl (Ondansetron 2 Mg/Ml Sdv 2 Ml) 4 mg IVP Q6H PRN PRN Reason: vomiting, or N/V if npo Pantoprazole Sodium (Pantoprazole 40 Mg Sdv) 40 mg IVP Q12H [facility] Last Admin: 02/24/25 09:33 Dose: 40 mg Discontinued Medications Albuterol/Ipratropium (Ipratropium-Albuterol 3 Ml Neb) 3 ml INHALATION Q4H PRN PRN Reason: SHORTNESS OF BREATH Heparin Sodium (Porcine) (Heparin 5,000 Unit/Ml Inj 1 Ml) 0 unit IVP PRN PRN; Protocol PRN Reason: Heparin Weight Based Protocol -Subsequent Bolus Last Admin: 02/23/25 17:09 Dose: 1,500 unit Heparin Sodium (Porcine) (Heparin 5,000 Unit/Ml Inj 1 Ml) 0 unit IVP ONCE ONE; Protocol Stop: 02/22/25 17:48 Last Increment: 02/22/25 18:17 Dose: 3,800 unit Incremental Dosing Total Given: 3,800 unit Sodium Chloride (Sodium Chloride 0.9%) 1,000 mls @ 999 mls/hr IV .Q1H1M ONE Stop: 02/22/25 18:41 Last Infusion: 02/22/25 19:57 Dose: Infused Heparin Sodium/Sodium Chloride (Heparin Drip) 25,000 unit in 500 mls @ 0 mls/hr IV CONT AUDIE; Protocol Last Titration: 02/24/25 09:23 Dose: Infused Piperacillin Sod/Tazobactam (Sod 3.375 gm/ Sodium Chloride) 50 mls @ 100 mls/hr IV ONCE ONE; Protocol Stop: 02/22/25 19:42 Last Infusion: 02/23/25 00:59 Dose: Infused Sodium Chloride (Sodium Chloride 0.9%) 1,000 mls @ 100 mls/hr IV .Q10H AUDIE Last Infusion: 02/23/25 10:10 Dose: Infused Piperacillin Sod/Tazobactam (Sod / Sodium Chloride) 50 mls @ 0 mls/hr [id number] CONT AUDIE; Protocol Piperacillin Sod/Tazobactam (Sod 3.375 gm/ Sodium Chloride) 50 mls @ 12.5 mls/hr IV Q8H AUDIE Last Infusion: 02/23/25 10:10 Dose: Infused Azithromycin 500 mg/ Sodium (Chloride) 250 mls @ 250 mls/hr IV Q24H AUDIE; Protocol Stop: 02/28/25 07:29 Last Infusion: 02/23/25 10:10 Dose: Infused Bivalirudin 250 mg/ Sodium (Chloride) 500 mls @ 295.131 mls/hr IV .Q1H42M AUDIE Iohexol (Iohexol 350 Mg/Ml 500 Ml Btl (Per Ml)) 0 ml IV ONCE ONE Stop: 02/22/25 15:28 Last Admin: 02/22/25 15:27 Dose: 100 ml Iohexol (Iohexol 350 Mg/Ml 500 Ml Btl (Per Ml)) 0 ml IV ONCE ONE Stop: 02/22/25 16:36 Last Admin: 02/22/25 16:35 Dose: 76 ml Ondansetron HCl (Ondansetron 2 Mg/Ml Sdv 2 Ml) 4 mg IVP Q6H PRN PRN Reason: NAUSEA AND VOMITING Polyethylene Glycol/Electrolytes (Peg /E-Lyte Soln 4,000 Ml Btl) 4,000 ml PO ONCE ONE Stop: 02/23/25 12:01 Polyethylene Glycol/Electrolytes (Peg /E-Lyte Soln 4,000 Ml Btl) 4,000 ml PO ONCE ONE Stop: 02/23/25 00:46 Last Admin: 02/23/25 02:27 Dose: 4,000 ml Allergies No Known Allergies Allergy (Unverified 03/09/22 10:38) Home Medications atorvastatin 10 mg tablet 10 mg PO QPM 03/09/22 [History Confirmed 02/22/25] exenatide microspheres 2 mg/0.85 mL subcutaneous auto-injector (Bydureon BCise) 2 mg SUBCUT Q7D 03/09/22 [History Confirmed 02/22/25] lisinopril 20 mg tablet 20 mg PO QPM 03/09/22 [History Confirmed 02/22/25] vortioxetine 10 mg tablet (Trintellix) 10 mg PO DAILY 03/09/22 [History Confirmed 02/22/25] albuterol sulfate 90 mcg/actuation aerosol inhaler 1 inh inhalation Q4H PRN Shortness Of Breath Or Wheezing 10/24/24 [History Confirmed 02/22/25] budesonide-formoterol HFA 160 mcg-4.5 mcg/actuation aerosol inhaler (Symbicort) 2 puff inhalation BID 10/24/24 [History Confirmed 02/22/25] insulin aspart U-100 100 unit/mL (3 mL) subcutaneous pen (Novolog FlexPen U-100 Insulin aspart) See Rx Instructions .Route .COMPLEX 10/24/24 [History Confirmed 02/22/25] insulin degludec 200 unit/mL (3 mL) subcutaneous pen (Tresiba FlexTouch U-200 insulin) 38 unit SUBCUT DAILY 10/24/24 [History Confirmed 02/22/25] metformin 1,000 mg tablet 1,000 mg PO BID 10/24/24 [History Confirmed 02/22/25] metoprolol succinate 25 mg tablet,extended release 24 hr 25 mg PO QAM 10/24/24 [History Confirmed 02/22/25] ondansetron 4 mg disintegrating tablet 4 mg PO Q6H PRN Nausea And Vomiting 10/24/24 [History Confirmed 02/22/25] tamsulosin 0.4 mg capsule 0.4 mg PO QPM 10/24/24 [History Confirmed 02/22/25] dapagliflozin propanediol 10 mg tablet (Farxiga) 10 mg PO QAM 02/22/25 [History Confirmed 02/22/25] diphenhydramine 25 mg-acetaminophen 500 mg tablet (Tylenol PM Extra Strength) 1 tab PO QPM PRN Pain 02/22/25 [History Confirmed 02/22/25] furosemide 40 mg tablet (Lasix) 40 mg PO QAM 02/22/25 [History Confirmed 02/22/25] insulin glargine 100 unit/mL (3 mL) subcutaneous pen (Lantus Solostar U-100 Insulin) 28 unit SUBCUT DAILY 02/22/25 [History Confirmed 02/22/25] sulfamethoxazole 800 mg-trimethoprim 160 mg tablet 1 tab PO Q12H 02/22/25 [History Confirmed 02/22/25] Discharge Plan Discharge Patient Disposition: Xfer Short-Term Hosp Condition: Stable Prescriptions: No Action atorvastatin 10 mg tablet 10 mg PO QPM Bydureon BCise 2 mg/0.85 mL auto-injector 2 mg SUBCUT Q7D Rx Instructions: Sundays lisinopril 20 mg tablet 20 mg PO QPM Trintellix 10 mg tablet 10 mg PO DAILY tamsulosin 0.4 mg Capsule 0.4 mg PO QPM metformin 1,000 mg Tablet 1,000 mg PO BID metoprolol succinate 25 mg Tablet Extended Release 24 Hr 25 mg PO QAM albuterol sulfate 90 mcg/actuation Hfa Aerosol Inhaler 1 inh INHALATION Q4H PRN (Reason: Shortness Of Breath Or Wheezing) ondansetron 4 mg Tablet,Disintegrating 4 mg PO Q6H PRN (Reason: Nausea And Vomiting) insulin aspart U-100 [Novolog FlexPen U-100 Insulin] 100 unit/mL (3 mL) Insulin Pen See Rx Instructions .ROUTE .COMPLEX Rx Instructions: inject as per sliding scale as needed 70-149=0 150-199=2 200-249=4 250-299=6 300-349=8 350+ =10 before meals and at bedtime budesonide-formoterol [Symbicort] 160-4.5 mcg/actuation Hfa Aerosol Inhaler 2 puff INHALATION BID insulin degludec [Tresiba FlexTouch U-200] 200 unit/mL (3 mL) Insulin Pen 38 unit SUBCUT DAILY diphenhydramine-acetaminophen [Tylenol PM Extra Strength] 25-500 mg Tablet 1 tab PO QPM PRN (Reason: Pain) furosemide [Lasix] 40 mg tablet 40 mg PO QAM sulfamethoxazole-trimethoprim 800-160 mg tablet 1 tab PO Q12H insulin glargine [Lantus Solostar U-100 Insulin] 100 unit/mL (3 mL) insulin pen 28 unit SUBCUT DAILY dapagliflozin propanediol [Farxiga] 10 mg tablet 10 mg PO QAM Discharge Orders: Transfer Out of Facility (Order); Ordered 02/24/25 Ordered By: Maya Kumar Referrals: Wero Galvez DO [Primary Care Provider, [facility]] - 03/06/25 9:30 am Patient Instructions: Pain Management Transfer Attestations Time Spent in Transfer Care: greater than 30 min Quality Metrics Clinical Quality Measures [ Venous Thromboembolism { Contraindication to Overlap Therapy: None; Overlap threrpy ordered; VTE Discharge Education: Education about anticoagulant therapy/Care Notes given; Deep Vein Thrombosis/Pulmonary Embolism Present on Admission: Yes;}] Coding Level of Care Code Acute Code for Chg Fwd Diagnoses Rectal bleeding K62.5 TRACI (acute kidney injury) N17.9 Pulmonary embolism on left I26.99 Acute respiratory failure with hypoxia J96.01 GI bleed K92.2 Stage I decubitus ulcer and pressure area L89.91
[2025-02-24] MEDS: cefTRIAXone 1,000 mg SDV 1000 MG IVP (11:07)
[2025-02-24 12:17] LABS: Partial Thromboplastin Time 55.5 SECONDS (23.9-36.7)
[2025-02-24 12:57] LABS: Glucose Point of Care 169 mg/dL (70-110)
[2025-02-24] MEDS: insulin lispro 100 unit/1 mL SUBCUT (13:10)
[2025-02-24 16:40] LABS: Glucose Point of Care 106 mg/dL (70-110)
--- NOTE | 2025-02-24 20:22 | PC.NURSE ---
Report called to BLAS Steiner at [facility] [place] -unit 3D. All questions answered. EMS arrived while this nurse was calling report so the patient will be leaving shortly. This nurse also notified Obdulia that EMS is here and patient will be leaving shortly after our phone call.
== END 2025-02-24 20:37 | disposition short-term general hospital (02) | DRG 175 ==
LOC: ER 18:03 → CSU 18:22 → MEDSURG 02-23 18:29
PROVIDERS: Internal Medicine; Admitting Provider Internal Medicine; Emergency Provider Family Medicine; PCP Family Medicine; Visit Provider Student in an Organized Health Care Education/Training Program
DX: I26.99 Other pulmonary embolism without acute cor pulmonale (principal); J96.01 Acute respiratory failure with hypoxia; K62.5 Hemorrhage of anus and rectum; N17.9 Acute kidney failure, unspecified; I50.20 Unspecified systolic (congestive) heart failure; L89.151 Pressure ulcer of sacral region, stage 1; I11.0 Hypertensive heart disease with heart failure; E78.5 Hyperlipidemia, unspecified; E11.40 Type 2 diabetes mellitus with diabetic neuropathy, unspecified; E11.51 Type 2 diabetes mellitus with diabetic peripheral angiopathy without gangrene; J45.909 Unspecified asthma, uncomplicated; N40.0 Benign prostatic hyperplasia without lower urinary tract symptoms; F32.9 Major depressive disorder, single episode, unspecified; I69.911 Memory deficit following unspecified cerebrovascular disease; F15.21 Other stimulant dependence, in remission; K64.8 Other hemorrhoids; N44.2 Benign cyst of testis; Z79.4 Long term (current) use of insulin; Z79.84 Long term (current) use of oral hypoglycemic drugs; Z86.718 Personal history of other venous thrombosis and embolism; Z87.891 Personal history of nicotine dependence
CPT/HCPCS: 12345; 36415; 36416; 36600; 70450; 71045; 71275; 74177; 80051; 80053; 80074; 80306; 81001; 82274; 82330; 82550; 82805; 82962; 83605; 83735; 83880; 84100; 84484; 85025; 85610; 85730; 87040; 93005; 93306; 93970; 94640; 96365; 96372; 96375; 96376; 99285; A9270; J0456; J0583; J0696; J1644; J1815; J2470; J2543; J7030; J7040; J7050; J7626; J9999